=== PATIENT | male | born 1950 | race Caucasian/White ===

== ENCOUNTER 2022-07-14 16:40 | Outpatient (CLI) | payer BC, SELFPAY | END 2022-07-14 16:41 | disposition home or self-care (01) | LOC: AMB 08-13 11:37 | PROVIDERS: PCP Family Medicine; Visit Provider Family Medicine | DX: R53.1 Weakness (principal); R11.2 Nausea with vomiting, unspecified | CPT/HCPCS: A0425; A0429 ==

== ENCOUNTER 2022-07-14 17:05 | Inpatient (IN) | payer BC, SELFPAY ==
[2022-07-14] VITALS (8 sets, daily range): BP systolic 123–153; BP diastolic 68–93; PULSE 97–103; RESP 18–20; TEMP 37.3; O2SAT 98–99; BMI 37.6
--- NOTE | 2022-07-14 18:02 | CRLHL7_ITS ---
For Patients: As a result of the Century Cures Act, medical imaging exams and procedure reports are released immediately into your electronic medical record. You may view this report before your referring provider. If you have questions, please contact your health care provider. Indication: Abdominal pain, nausea and vomiting Technique: Contrast enhanced CT of the abdomen and pelvis, Isovue 370, 139 cc IV Please note that all CT scans at this facility use dose modulation, iterative reconstruction, and/or weight-based dosing when appropriate to reduce radiation dose to as low as reasonably achievable. Comparison: CT dated September 22, 2020 on Findings: Normal liver size and contour. No suspicious hepatic lesions. Hepatic veins are under opacified. Portal veins patent. Gallbladder not visualized. No biliary dilatation. Adrenal glands, spleen and pancreas unremarkable. Bilateral renal cortical scarring and renal atrophy. Low-attenuation renal lesions which are too small to characterize. Heterogeneous enhancement of the kidneys is similar to prior, possibly nonacute. Stomach and duodenum unremarkable. Celiac artery, SMA, renal arteries and renal veins appear patent. Normal course and caliber of the abdominal aorta and the IVC. Moderate atherosclerotic disease of the abdominal aorta. There are is no retroperitoneal lymphadenopathy. There are several prominent pelvic lymph nodes which appear increased in size when compared to prior, for example a left iliac lymph node (series 2, image 98) measures approximately 1.2 centimeters. A right iliac lymph node (series 2, image 99) measures 1.4 centimeters. Mild bladder wall thickening. Prostate unremarkable. No bowel wall thickening or bowel obstruction. The rectal wall is prominent distally (series 2, image 141) however this is unchanged from prior. The appendix is normal. No significant free fluid. No acute osseous abnormality. There are multiple spinous fusions of vertebral bodies. Impression: 1. Mild bladder wall thickening and heterogeneous renal enhancement as may be seen with cystitis and ascending urinary tract infection. Correlate with urinalysis. 2. Few, nonspecifically enlarged pelvic lymph nodes which have increased in size when compared to prior. Please note that all CT scans at this facility use dose modulation, iterative reconstruction, and/or weight-based dosing when appropriate to reduce radiation dose to as low as reasonably achievable. Dictated by Zain Dior MD @ 07/14/2022 7:35:35 PM (Electronically Signed)
--- NOTE | 2022-07-14 18:28 | ED.NAVMDI ---
HPI - Nausea/Vomiting/Diarrhea General Chief complaint: Nausea/Vomiting Stated complaint: Vomiting Time Seen by Provider: 07/14/22 17:46 History of Present Illness HPI Narrative: Marlon is a 72-year-old male patient presents to the emergency department from [facility] independent [facility] the EMS with complaints of 3 episodes of vomiting today. Patient states that he woke in his usual state of health and had breakfast. After which, the patient reports difficulty ?keeping down food?. He reports having a liquid lunch secondary to multiple episodes of vomiting. He denies new food exposures. He denies travel. He denies other residents with similar symptoms. The patient denies abdominal pain, constipation, or diarrhea. He denies fever, chills, or sweats. He was tested for COVID earlier today, per his report. Otherwise, he has received no evaluation or treatment prior to presentation emergency department. He has known history of hypertension, morbid obesity, atrial fibrillation, diabetes mellitus, chronic kidney disease, and peripheral vascular disease. At time of evaluation, the patient reports he has no symptoms and is uncertain why he is in the emergency department. Patient is advised he does not have Friday, but would recommend evaluation given his episodes of vomiting and reported abdominal pain. The patient is agreeable for evaluation. Associated nausea: Yes Related Data Home Medications Medication Instructions Recorded Confirmed atorvastatin 40 mg tablet mg 07/14/22 chlorthalidone 25 mg tablet mg 07/14/22 insulin detemir U-100 100 unit/mL unit subcut 07/14/22 (3 mL) subcutaneous pen (Levemir FlexTouch U-100 Insulin) levetiracetam 1,000 mg tablet mg PO 07/14/22 metoprolol succinate 25 mg mg PO 07/14/22 tablet,extended release 24 hr omeprazole 20 mg capsule,delayed mg 07/14/22 release rivaroxaban 15 mg tablet (Xarelto) mg 07/14/22 tamsulosin 0.4 mg capsule mg PO 07/14/22 Allergies Allergy/AdvReac Type Severity Reaction Status Date / Time Unable to Assess Allergy Unverified 07/14/22 19:05 Review of Systems Const: Denies: fever, chills, fatigue or malaise ENMT: Denies: throat pain or difficulty swallowing Cardio: Denies: chest pain or shortness of breath with exertion Resp: Denies: shortness of breath or cough GI: Reports: abdominal pain, nausea and vomiting; Denies: heartburn, diarrhea, constipation, bloating, belching, excessive passing of gas, difficulty swallowing, feeling full early, change in bowel habits or blood in stool : Denies: painful urination, urinary frequency, urinary urgency or blood in urine Neuro: Denies: headache Endo: Denies: excessive urination or fatigue PFSH PFSH Social History Smoking Status: Smoker, status unknown Non-prescribed substance use: denies use Exam Const: Vital Signs, click to edit/add: Vital Signs - 24 hr 07/14/22 17:21 Temperature 99.1 F Pulse Rate [Right Pulse Oximeter] 97 Respiratory Rate 18 Blood Pressure [Ri ght Upper Arm] 138/90 H Pulse Oximetry 98 Oxygen Delivery Me thod Room Air Documenting provider has reviewed patient's vital signs: yes Common normals: no apparent distress, oriented x3, no limitations, healthy appearing, alert and well nourished General appearance: cooperative, comfortable and well developed; not in distress Orientation/consciousness: Yes awake, Yes oriented to person, Yes oriented to place and Yes oriented to time HENMT: Common normals: normocephalic and head/scalp atraumatic Head and scalp: normocephalic and atraumatic Face and sinus: normal facial exam (limited by masking) Eye: Common normals: EOMs intact bilaterally General eye: normal appearance of both eyes Resp: Common normals: normal respiratory effort, no retractions, no use of accessory muscles and clear to auscultation bilaterally Effort & inspection: able to speak in complete sentences Auscultation: clear to auscultation bilaterally Cardio: Common normals: regular rate, regular rhythm, S1 normal heart sound, S2 normal heart sound, no gallops, no clicks and no murmurs Rate: regular rate Rhythm: regular rhythm Heart sounds: S1 normal and S2 normal GI: Common normals: Normal to inspection, nondistended, normoactive bowel sounds present and soft to palpation Palpation: soft and tender (Diffusely) Extremity: Common normals: normal to inspection (per nursing, patient does have erythematous R thigh) and full ROM General: edema (Chronic and nonpitting, bilateral) Neuro: [place] Coma Scale: document GCS findings [place] coma scale eye opening: To sound (3) [place] coma scale verbal response: Orientated (5) [place] coma scale motor response: Obey commands (6) [place] coma scale total score: 14 Common normals: oriented x3, CN's II-XII intact bilaterally, moves all extremities, no focal motor deficits and no sensory deficits noted Sensorium/orientation: awake, alert, oriented to person, oriented to place and oriented to time Speech: speech normal Gait (neuro): normal gait Sensory exam: double simultaneous stimulation for sensation normal Motor exam: no movement abnormalities noted Psych: Common normals: mental status grossly normal, thought process normal and speech normal Appearance: grossly normal Attitude: calm Speech: normal speech Thought process: normal thought process Thought content: normal thought content Attention/concentration: attention grossly intact Memory/cognition: memory grossly intact and cognition grossly intact Insight: fair Judgement: fair Skin: Common normals: no rashes or lesions noted General skin exam: no rashes or lesions noted Course Course Hospital Course: Marlon presented for complaints of nausea and vomiting, with resolution of symptoms prior to evaluation. He was offered evaluation and treatment including labs and imaging. Initially he was frustrated with the wait times in the high volume, high acuity emergency department. However, with encouragement, he agrees to evaluation and treatment for his acute concerns noted today. Labs have been ordered. Imaging has been ordered. He is resting comfortably after evaluation. Vital Signs Vital signs: Initial Vital Signs Temperature 99.1 F 07/14/22 17:21 Temperature Source Temporal Artery Scan 07/14/22 17:21 Pulse Rate 97 07/14/22 17:21 Respiratory Rate 18 07/14/22 17:21 Blood Pressure 138/90 H 07/14/22 17:21 Blood Pressure Mean 106 07/14/22 17:21 Blood Pressure Position Sitting 07/14/22 17:21 Pulse Oximetry 98 07/14/22 17:21 Oxygen Delivery Method 07/14/22 17:21 Vital Signs Temperature 99.1 F 07/14/22 17:21 Pulse Rate 97 07/14/22 17:21 Respiratory Rate 18 07/14/22 17:21 Blood Pressure 138/90 H 07/14/22 17:21 Pulse Oximetry 98 07/14/22 17:21 Oxygen Delivery Method 07/14/22 17:21 Temperature 99.1 F 07/14/22 17:21 Pulse Rate 97 07/14/22 17:21 Respiratory Rate 18 07/14/22 17:21 Blood Pressure 138/90 H 07/14/22 17:21 Pulse Oximetry 98 07/14/22 17:21 Oxygen Delivery Method 07/14/22 17:21 MDM - Nausea/Vomiting/Diarrhea MDM Narrative Medical decision making narrative: During the evaluation of this patient consider multiple differential diagnosis considerations. The life-threatening differential diagnoses considered include: Appendicitis, aortic aneurysm, mesenteric ischemia, bowel perforation, volvulus, and bowel obstruction. Other differential diagnoses include but are not limited to: Inflammatory bowel disease, cholecystitis, pancreatitis, hepatitis, gastritis, GERD, diverticulitis, peptic ulcer disease, pyelonephritis/UTI, renal colic/stone, diseases of the genitourinary system and reproductive system, as well as the other etiologies. Medical Records Attestation: I reviewed the patient's medical records. Lab Data Attestation: I reviewed the patient's lab results. Labs: Lab Results 07/14/22 07/14/22 07/14/22 Range/Units 17:35 17:57 18:05 WBC 26.10 H* (4.50-11.00) K/uL RBC 4.65 (4.30-5.90) m/uL Hgb 14.6 (13.5-17.5) gm/dL Hct 43.5 (37.0-53.0) % MCV 94 (80-100) fL MCH 31 (26-34) pg MCHC 34 (32-36) gm/dL RDW Coeff of Alessandro 13.3 (11.5-15.5) % Plt Count 188 (140-440) K/uL Neut % (Auto) 93.2 H (42.0-72.0) % Lymph % (Auto) 1.7 L (20-44) % [place] % (Auto) 4.8 (0.0-11.0) % Eos % (Auto) 0.0 (0.0-7.0) % Baso % (Auto) 0.0 (0.0-3.0) % Neut # (Auto) 24.30 H (1.7-7.0) K/uL Lymph # (Auto) 0.40 L (0.90-2.90) K/uL [place] # (Auto) 1.30 H (0.00-0.90) K/UL Eos # (Auto) 0.00 (0.00-0.50) K/uL Baso # (Auto) 0.00 (0.00-0.30) K/uL Abs Immat Gran (auto) 0.10 (0.00-0.30) K/uL Imm/Tot Granulo (auto) 0.3 % Sodium (135-149) mmol/L Potassium (3.6-5.1) mmol/L Chloride (96-114) mmol/L Carbon Dioxide (20-32) mmol/L BUN (7-30) mg/dL Creatinine (0.5-1.5) mg/dL Estimated Creat Clear Estimated GFR ml/min Glucose (60-115) mg/dL Venous Lactic Acid (Serial Order) Calcium (8.4-10.6) mg/dL Total Bilirubin (0.1-1.5) mg/dL AST (12-35) U/L ALT (4-50) U/L Alkaline Phosphatase (40-150) U/L Total Protein (6.0-8.3) g/dL Albumin (3.3-5.0) g/dL Amylase (18-89) U/L Lipase (23-300) U/L Procalcitonin (<0.50) ng/mL Urine Color Yellow (Yellow) Urine Appearance Cloudy A (Clear) Urine pH 7.0 (5.0-8.5) Ur Specific [place] 1.020 (1.000-1.030) Urine Protein 3+ A (Negative) Urine Glucose (UA) 2+ A (Negative) Urine Ketones Trace A (Negative) Urine Blood 2+ A (Negative) Urine Nitrite Negative (Negative) Urine Bilirubin Negative (Negative) Urine Urobilinogen 0.2 (0.2-1.0) Ur Leukocyte Esterase Trace A (Negative) Urine RBC 2-5 A (0-2) Urine WBC 5-10 A (0-5) Urine WBC Clumps Few A (None) Ur Squamous Epith Cells None (None-Few) Amorphous Sediment Few A (None) Urine Bacteria Few A (None) SARS-CoV-2 (PCR) Negative SARS-CoV-2 (Negative) 07/14/22 07/14/22 07/14/22 Range/Units 18:05 18:05 18:05 WBC (4.50-11.00) K/uL RBC (4.30-5.90) m/uL Hgb (13.5-17.5) gm/dL Hct (37.0-53.0) % MCV (80-100) fL MCH (26-34) pg MCHC (32-36) gm/dL RDW Coeff of Alessandro (11.5-15.5) % Plt Count (140-440) K/uL Neut % (Auto) (42.0-72.0) % Lymph % (Auto) (20-44) % [place] % (Auto) (0.0-11.0) % Eos % (Auto) (0.0-7.0) % Baso % (Auto) (0.0-3.0) % Neut # (Auto) (1.7-7.0) K/uL Lymph # (Auto) (0.90-2.90) K/uL [place] # (Auto) (0.00-0.90) K/UL Eos # (Auto) (0.00-0.50) K/uL Baso # (Auto) (0.00-0.30) K/uL Abs Immat Gran (auto) (0.00-0.30) K/uL Imm/Tot Granulo (auto) % Sodium 130 L (135-149) mmol/L Potassium 4.9 (3.6-5.1) mmol/L Chloride 98 (96-114) mmol/L Carbon Dioxide 22 (20-32) mmol/L BUN 35 H (7-30) mg/dL Creatinine 1.8 H (0.5-1.5) mg/dL Estimated Creat Clear 40.69 Estimated GFR 39 ml/min Glucose (60-115) mg/dL Venous Lactic Acid (Serial Order) Calcium 8.7 (8.4-10.6) mg/dL Total Bilirubin 1.2 (0.1-1.5) mg/dL AST 24 (12-35) U/L ALT 20 (4-50) U/L Alkaline Phosphatase 118 (40-150) U/L Total Protein 6.9 (6.0-8.3) g/dL Albumin 3.5 (3.3-5.0) g/dL Amylase 52 (18-89) U/L Lipase 13 L (23-300) U/L Procalcitonin 1.55 H (<0.50) ng/mL Urine Color (Yellow) Urine Appearance (Clear) Urine pH (5.0-8.5) Ur Specific [place] (1.000-1.030) Urine Protein (Negative) Urine Glucose (UA) (Negative) Urine Ketones (Negative) Urine Blood (Negative) Urine Nitrite (Negative) Urine Bilirubin (Negative) Urine Urobilinogen (0.2-1.0) Ur Leukocyte Esterase (Negative) Urine RBC (0-2) Urine WBC (0-5) Urine WBC Clumps (None) Ur Squamous Epith Cells (None-Few) Amorphous Sediment (None) Urine Bacteria (None) SARS-CoV-2 (PCR) (Negative) Imaging Data CT scan - abdomen: Attestation: I have reviewed the pertinent imaging results. Radiologist's impression: Impression: 1. Mild bladder wall thickening and heterogeneous renal enhancement as may be seen with cystitis and ascending urinary tract infection. Correlate with urinalysis. 2. Few, nonspecifically enlarged pelvic lymph nodes which have increased in size when compared to prior. Discharge Plan Discharge Clinical Impression: Acute UTI, Metabolic acidosis Diabetes mellitus with hyperglycemia, with long-term current use of insulin Qualifiers: Diabetes mellitus type: type 2 Qualified Code(s): E11.65 - Type 2 diabetes mellitus with hyperglycemia Patient Disposition: Admitted As Inpatient Condition: Stable Activity Level: Activity as Tolerated Discharge Diet: Diabetic and Heart Healthy (2 gm sodium, low fat)
[2022-07-14 18:38] LABS: Hematocrit 43.5 % (37.0-53.0); Hemoglobin* 14.6 gm/dL (13.5-17.5); Immature Granulocytes Pct Auto 0.3 %; Lymphocytes Percent Auto 1.7 % (20-44); Mean Corpuscular HGB Conc 34 gm/dL (32-36); Mean Corpuscular Hemoglobin 31 pg (26-34); Mean Corpuscular Volume 94 fL (80-100); Monocytes Percent Auto 4.8 % (0.0-11.0); Neutrophils Percent Auto 93.2 % (42.0-72.0); Platelet Count* 188 K/uL (140-440); RDW Coefficient of Variation % 13.3 % (11.5-15.5); Red Blood Count 4.65 m/uL (4.30-5.90)
[2022-07-14 18:39] LABS: Albumin* 3.5 g/dL (3.3-5.0); Chloride* 98 mmol/L (96-114); Potassium* 4.9 mmol/L (3.6-5.1); Slide Review Reflex No; Sodium* 130 mmol/L (135-149)
[2022-07-14 18:41] LABS: Amylase* 52 U/L (18-89)
[2022-07-14 18:42] LABS: Alanine Aminotransferase* 20 U/L (4-50); Alkaline Phosphatase* 118 U/L (40-150); Aspartate Amino Transferase* 24 U/L (12-35); Bilirubin Total* 1.2 mg/dL (0.1-1.5); Blood Urea Nitrogen* 35 mg/dL (7-30); Calcium* 8.7 mg/dL (8.4-10.6); Carbon Dioxide* 22 mmol/L (20-32); Creatinine* 1.8 mg/dL (0.5-1.5); Est. Creatinine Clearance* 40.69; Estimated Glomerular Filt Rate 39 ml/min; Lipase* 13 U/L (23-300); Total Protein* 6.9 g/dL (6.0-8.3)
--- NOTE | 2022-07-14 18:47 | CRLHL7_ITS ---
For Patients: As a result of the Century Cures Act, medical imaging exams and procedure reports are released immediately into your electronic medical record. You may view this report before your referring provider. If you have questions, please contact your health care provider. INDICATION: Leukocytosis. COMPARISON: Chest radiograph dated November 01, 2021. TECHNIQUE: Single-view chest radiograph. FINDINGS: Stable cardiomediastinal contours. No focal pulmonary opacity. High-density material projects over the right axilla. No significant pleural effusion or pneumothorax. IMPRESSION: No acute cardiopulmonary abnormality. Dictated by Zain Dior MD @ 07/14/2022 7:36:54 PM (Electronically Signed)
[2022-07-14 18:50] LABS: SARS PCR* Negative SARS-CoV-2 (Negative)
--- NOTE | 2022-07-14 19:02 | ED.NURSE ---
Critical labs received: Glucose 402, WBC 26.1, handed to at 1855, new orders received
[2022-07-14 19:04] LABS: Lactate Sepsis w/Reflex* 2.9 mmol/L (0.5-1.9)
[2022-07-14 19:22] LABS: Appearance Urine Cloudy (Clear); Bilirubin Urine Negative (Negative); Blood Urine 2+ (Negative); Color Urine Yellow (Yellow); Glucose Urine 2+ (Negative); Ketones Urine Trace (Negative); Leukocyte Esterase Urine Trace (Negative); Nitrite Urine Negative (Negative); Protein Urine 3+ (Negative); Urobilinogen Urine 0.2 (0.2-1.0)
[2022-07-14 19:31] LABS: Procalcitonin* 1.55 ng/mL (<0.50)
[2022-07-14 19:32] LABS: Amorphous Sediment Urine Few; Bacteria Urine Few; WBC Clumps Urine Few
[2022-07-14] MEDS: 0.9 % SODIUM CHLORIDE 1000 ml 1,000 ML IV (19:46)
[2022-07-14] MEDS: FUROSEMIDE 10 MG/ML inj 20 MG IVP (20:06)
[2022-07-14] MEDS: cefTRIAXone 2 GM in 0.9 % SODIUM CHLORIDE Mini-bag 100 ML IVPB (20:23)
--- NOTE | 2022-07-14 20:34 | ED.NURSE ---
Gave update to [facility]TC EBONI Plata about plan to admit.
--- NOTE | 2022-07-14 21:06 | ED.NURSE ---
Pt to floor with Normal Saline infusing.
--- NOTE | 2022-07-14 21:10 | PM.IMHP1 ---
Hospitalist- H&P: HPI History of Present Illness Date Seen: 07/14/22 Chief complaint: Vomiting Narrative: Marlon Quijano is a 72 year old male who lives in the [address] [facility] [address]. He awoke feeling fine today and ate a normal breakfast. Pt then began having an upset stomach with no abd pain. Pt's nausea persisted and he vomited times 3. No blood in his vomitus. No diarrhea. Do to feeling poorly, pt called EMS and was brought to the Emergency Department where his evaluation showed a white blood cell count of 26.1. He is an insulin dependant diabetic and his blood sugar was roughly 400 with an anion gap of 10. Pts creatinine was 1.8 with a BUN of 35, Sodium was 130 and Procalcitonin was 1.55. Chest x ray was normal and CT of abd and pelvis showed bladder wall thickening with pelvic lymph nodes. UA compatible with infection. Blood and urine cultures were collected and pt received IV Rocephin. Pt agrees to admission. Covid testing is negative. Review of Systems Status of ROS: Reports: 10 or more systems reviewed and unremarkable except as noted in History and below [facility] Medical History (Updated 07/14/22 @ 21:41 by Mauro Melendrez MD) Atrial fibrillation BPH (benign prostatic hyperplasia) Chronic renal insufficiency Diabetes mellitus Hearing loss Hyperlipidemia Hypertension MRSA (methicillin resistant staph aureus) culture positive Neuropathy Obesity Peripheral vascular disease Pressure ulcer Tinea Vomiting Social History Smoking Status: Smoker, status unknown Non-prescribed substance use: denies use Meds Home Medications and Allergies Home Medications Medication Instructions Recorded Confirmed Type atorvastatin 40 mg tablet 40 mg PO .bedtime 07/14/22 07/14/22 History chlorthalidone 25 mg tablet mg 07/14/22 History insulin detemir U-100 100 unit/mL unit subcut 07/14/22 History (3 mL) subcutaneous pen (Levemir FlexTouch U-100 Insulin) levetiracetam 1,000 mg tablet mg PO 07/14/22 History metoprolol succinate 25 mg mg PO 07/14/22 History tablet,extended release 24 hr omeprazole 20 mg capsule,delayed mg 07/14/22 History release rivaroxaban 15 mg tablet (Xarelto) mg 07/14/22 History tamsulosin 0.4 mg capsule 0.4 mg PO NIGHTLY 07/14/22 07/14/22 History Allergies Allergy/AdvReac Type Severity Reaction Status Date / Time Influenza Virus Vaccines Allergy Unknown Unknown Verified 07/14/22 20:37 Exam Narrative: Exam Narrative: EXAM GENERAL: Patient appears poorly kept with multiple [place] of tinea in his folds EYES: No scleral icterus. THYROID: no thyroid nodules or thyromegaly. LYMPH: No supraclavicular or cervical lymphadenopathy. SKIN: As above with peripheral vascular bronzing with chronic appearing ulcerations of the lower extremity which do not appear to be infected. Small pressure ulcers times three on the buttocks in the midline. No signs of infection EXT: Lateral 2 digits amputated in the left lower extremity with multiple partial digit amputations of the upper extremities. HEART: Irregularly irregular with distant heart tones LUNGS: Clear to auscultation bilaterally with no crackles or wheezes. ABD: Soft, non tender, non distended. PSYCH: Good eye contact, speech is not pressured. neurologic: Peripheral neuropathy noted no signs of acute infection. No other focal neurologic defects. Const: Vital Signs, click to edit/add: Vital Signs - 24 hr 07/14/22 17:21 07/14/22 18:02 07/14/22 20:45 Temperature 99.1 F Pulse Rate [Right Pulse Oximeter] 97 103 H Respiratory Rate 18 20 20 Blood Pressure [Ri ght Upper Arm] 138/90 H 150/93 H 123/68 Pulse Oximetry [facility] 07/14/22 20:00 Temperature Pulse Rate [Right Pulse Oximeter] Respiratory Rate Blood Pressure [Ri ght Upper Arm] 130/93 H Pulse Oximetry [facility] - [facility]: Result Labs Labs: Short CBC 07/14/22 Range/Units 18:05 WBC 26.10 H* (4.50-11.00) K/uL Hgb 14.6 (13.5-17.5) gm/dL Hct 43.5 (37.0-53.0) % Plt Count 188 (140-440) K/uL BMP 07/14/22 18:05 Sodium 130 L Potassium 4.9 Chloride 98 Carbon Dioxide 22 BUN 35 H Creatinine 1.8 H Glucose Calcium 8.7 Liver Function 09/18/22 Range/Units 18:05 Total Bilirubin 1.2 (0.1-1.5) mg/dL AST 24 (12-35) U/L ALT 20 (4-50) U/L Alkaline Phosphatase 118 (40-150) U/L Albumin 3.5 (3.3-5.0) g/dL Urine 07/14/22 Range/Units 17:35 Urine Color Yellow (Yellow) Urine Appearance Cloudy A (Clear) Urine pH 7.0 (5.0-8.5) Ur Specific [place] 1.020 (1.000-1.030) Urine Protein 3+ A (Negative) Urine Glucose (UA) 2+ A (Negative) Assessment and Plan Assessment and plan (1) Acute UTI: Status: Acute Assessment and Plan: Blood cultures collected. Urine culture collected. Rocephin IV will be continued. Will repeat AM labs as well as a lactate now. (2) Diabetes mellitus: Status: Chronic Assessment and Plan: Will continue current outpt regiment as well as accuchecks and sliding scale insulin. (3) Pressure ulcer: Status: Acute Assessment and Plan: Off load tissue. Mepelex. Tdap confirmed on 12-18-18. Consider wound consult. (4) Chronic renal insufficiency: Status: Acute Assessment and Plan: Pt is near baseline. Will hydrate overnight with repeat labs in the am. (5) Vomiting: Status: Acute Assessment and Plan: This seems to have resolved. Will hydrate and provide Zofran. (6) Tinea: Status: Acute Assessment and Plan: Hygiene issue. Will clean up and provide nystatin creme. (7) Peripheral vascular disease: Status: Chronic Assessment and Plan: Chronic No signs of secondary infection (8) Atrial fibrillation: Status: Chronic Assessment and Plan: Rate is controlled will continue Riveroxoban. (9) Hypertension: Status: Chronic Assessment and Plan: Blood pressure stable. Will continue outpt regiment. (10) Hyperlipidemia: Status: Chronic Assessment and Plan: Continue Atorvastatin (11) BPH (benign prostatic hyperplasia): Status: Chronic Assessment and Plan: Continue Flomax. May benefit from bladder scan post void in the am. Plan Pt wishes to be a DNR
[2022-07-14 21:28] LABS: Glucose* 402 mg/dL (60-115)
[2022-07-14 22:14] LABS: Lactate Sepsis 2 Hour 2.3 mmol/L (0.5-1.9)
[2022-07-14] MEDS: ATORVASTATIN CALCIUM 40 MG TABLET PO (22:51)
[2022-07-14] MEDS: cefTRIAXone 1 GM in 0.9 % SODIUM CHLORIDE Mini-bag 100 ML IVPB (22:51)
[2022-07-15] MEDS: 0.9 % SODIUM CHLORIDE 1000 ml 1,000 ML 75 ML IV (00:51)
[2022-07-15 03:00] VITALS: BP 117/69; PULSE 66; RESP 21; O2SAT 100
[2022-07-15 03:15] VITALS: BP 153/80; PULSE 98; RESP 18; TEMP 37.3; O2SAT 99; BMI 40.9
--- NOTE | 2022-07-15 06:56 | PC.NURSE ---
shift [id number] pt admitted from ED at 2044. c/o nausea and vomiting at home but has since denies any symptoms. States he feels weak d/t not eating much the last few days. Unable to transfer or bear weight per pt report, uses WC at home to get around. Incontinent x1 NOC, brief changed, carina care done. Skin in groin red and inflamed. Nystatin cream ordered form this morning. Pt has multiple open and scabbed sores on buttocks, inner and outer thighs/calf, and feet. See wound report. Denies any pain. Pt is adamant that he will be leaving at 1030 d/t company coming to visit. refused lab draw in AM.
[2022-07-15 08:00] VITALS: PULSE 92; RESP 18
[2022-07-15 08:17] VITALS: BP 157/73; PULSE 92; RESP 18; TEMP 36.7; O2SAT 98
--- NOTE | 2022-07-15 09:29 | P.DS_ITS ---
DS: Providers Provider Date Seen: 07/15/22 Date of admission: 07/14/22 20:39 Primary care physician: Willis Puentes MD Admitting Clinician: Mauro Melendrez MD Attending Physician on discharge: Abe Chan MD Date of Discharge: 07/15/22 DS: Diagnosis Discharge Diagnosis (1) Acute UTI: Status: Acute Problem details: 1. Acute UTI 2. Hx of CKD 3. 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 Hx of PVD 5. Hx of BPH 6. Nausea, vomiting 7. Hx of HLD 8. Hx of pressure ulcers 9. Palliative comfort care DS: Summary Hospital Course Hospital Course: Marlon presented for evaluation of fever and UTI. He was started on Ceftriaxone. On day two of hospitalization he requested discharge. Initial plan was to discharge AMA. However, his halfway care facility was notified and it was found that patient is on comfort care. Per facility weekend nurses where not aware that patient was comfort care otherwise he would not have been sent to hospital. He has poorly controlled Diabetes with hyperglycemia. Upon further discussion with patient he requested expedited discharge back to his halfway care facility. He requested to be discharged on oral antibiotics and continuation of seating captain medications. Time Spent with Patient Time attestation: Total time spent providing and/or coordinating discharge services: Time spent: Greater than 30 minutes Exam Narrative: Exam Narrative: Gen: no acute distress HEENT: NCAT EOMI MMM CV: RRR normal s1 s2 lungs: CTAB Abd: Soft, nt nd Neuro: Alert, oriented Psyche: appropriate affect Const: Vital Signs, click to edit/add: Vital Signs - 24 hr 07/14/22 17:21 07/14/22 18:02 07/14/22 20:45 Temperature 99.1 F Pulse Rate [Left P ulse Oximeter] Pulse Rate [Right Pulse Oximeter] 97 103 H Respiratory Rate 18 20 20 Blood Pressure [Le ft Arm] Blood Pressure [Ri ght Arm] Blood Pressure [Ri ght Upper Arm] 138/90 H 150/93 H 123/68 Pulse Oximetry 98 Oxygen Delivery Me thod Room Air 07/14/22 20:00 07/14/22 21:42 07/14/22 23:00 Temperature 99.1 F Pulse Rate [Left P ulse Oximeter] Pulse Rate [Right Pulse Oximeter] Respiratory Rate 18 18 Blood Pressure [Le ft Arm] 153/80 H 153/80 H Blood Pressure [Ri ght Arm] Blood Pressure [Ri ght Upper Arm] 130/93 H Pulse Oximetry 99 99 Oxygen Delivery Me thod Room Air Room Air 07/14/22 22:00 07/15/22 03:15 07/15/22 03:00 Temperature 99.1 F Pulse Rate [Left P ulse Oximeter] 98 66 Pulse Rate [Right Pulse Oximeter] Respiratory Rate 18 18 21 Blood Pressure [Le ft Arm] 153/80 H Blood Pressure [Ri ght Arm] 117/69 Blood Pressure [Ri ght Upper Arm] Pulse Oximetry 98 99 100 Oxygen Delivery Me thod Room Air Room Air Room Air 07/14/22 21:00 07/15/22 08:17 Temperature 98.0 F Pulse Rate [Left P ulse Oximeter] 98 92 Pulse Rate [Right Pulse Oximeter] Respiratory Rate 18 18 Blood Pressure [Le ft Arm] Blood Pressure [Ri ght Arm] 157/73 H Blood Pressure [Ri ght Upper Arm] Pulse Oximetry 98 Oxygen Delivery Me thod Room Air DS: Data Data Completed and Pending Labs on day of discharge: Labs from last 24 hours 07/14/22 07/14/22 07/14/22 18:05 18:05 18:05 WBC RBC Hgb Hct MCV MCH MCHC RDW Coeff of Alessandro Plt Count Neut % (Auto) Lymph % (Auto) [place] % (Auto) Eos % (Auto) Baso % (Auto) Neut # (Auto) Lymph # (Auto) [place] # (Auto) Eos # (Auto) Baso # (Auto) Abs Immat Gran (auto) Imm/Tot Granulo (auto) Sodium 130 L Potassium 4.9 Chloride 98 Carbon Dioxide 22 BUN 35 H Creatinine 1.8 H Estimated Creat Clear 40.69 Estimated GFR 39 Glucose 402 H* Venous Lactic Acid (Serial Order) Calcium 8.7 Total Bilirubin 1.2 AST 24 ALT 20 Alkaline Phosphatase 118 Total Protein 6.9 Albumin 3.5 Amylase 52 Lipase 13 L Procalcitonin 1.55 H Urine Color Urine Appearance Urine pH Ur Specific [place] Urine Protein Urine Glucose (UA) Urine Ketones Urine Blood Urine Nitrite Urine Bilirubin Urine Urobilinogen Ur Leukocyte Esterase Urine RBC Urine WBC Urine WBC Clumps Ur Squamous Epith Cells Amorphous Sediment Urine Bacteria SARS-CoV-2 (PCR) 07/14/22 07/14/22 07/14/22 18:05 17:57 17:35 WBC 26.10 H* RBC 4.65 Hgb 14.6 Hct 43.5 MCV 94 MCH 31 MCHC 34 RDW Coeff of Alessandro 13.3 Plt Count 188 Neut % (Auto) 93.2 H Lymph % (Auto) 1.7 L [place] % (Auto) 4.8 Eos % (Auto) 0.0 Baso % (Auto) 0.0 Neut # (Auto) 24.30 H Lymph # (Auto) 0.40 L [place] # (Auto) 1.30 H Eos # (Auto) 0.00 Baso # (Auto) 0.00 Abs Immat Gran (auto) 0.10 Imm/Tot Granulo (auto) 0.3 Sodium Potassium Chloride Carbon Dioxide BUN Creatinine Estimated Creat Clear Estimated GFR Glucose Venous Lactic Acid (Serial Order) Calcium Total Bilirubin AST ALT Alkaline Phosphatase Total Protein Albumin Amylase Lipase Procalcitonin Urine Color Yellow Urine Appearance Cloudy A Urine pH 7.0 Ur Specific [place] 1.020 Urine Protein 3+ A Urine Glucose (UA) 2+ A Urine Ketones Trace A Urine Blood 2+ A Urine Nitrite Negative Urine Bilirubin Negative Urine Urobilinogen 0.2 Ur Leukocyte Esterase Trace A Urine RBC 2-5 A Urine WBC 5-10 A Urine WBC Clumps Few A Ur Squamous Epith Cells None Amorphous Sediment Few A Urine Bacteria Few A SARS-CoV-2 (PCR) Negative SARS-CoV-2 Discharge Plan Discharge Disposition: Left Against Medical Advice Date of Admission: 07/15/22 09:38 Attending Physician on Admission: Mauro Melendrez Attending Provider on Discharge: Abe Chan Primary Care Provider: Willis Puentes Condition: Stable Discharge Medications: New cefdinir 300 mg capsule 300 mg PO BID Qty: 14 0RF Continued atorvastatin 40 mg tablet 40 mg PO HS tamsulosin 0.4 mg capsule 0.4 mg PO NIGHTLY omeprazole 20 mg capsule,delayed release(DR/EC) 20 mg PO DAILY metoprolol succinate 25 mg tablet extended release 24 hr 25 mg PO DAILY Levemir FlexTouch U-100 Insuln 100 unit/mL (3 mL) insulin pen 50 unit SUBCUT HS levetiracetam 1,000 mg tablet 1,000 mg PO QAM Xarelto 15 mg tablet 15 mg PO HS furosemide 20 mg tablet 10 mg PO DAILY levetiracetam 500 mg tablet 500 mg PO HS emollient [Vanicream] Cream 1 applic topical HS Rx Instructions: APPLY TO ARMS AND LEGS acetaminophen 500 mg tablet 1,000 mg PO BID loperamide 2 mg capsule 2 mg PO QID PRN nitroglycerin 0.4 mg tablet, sublingual 0.4 mg sublingual Q5M PRN (Reason: chest pain) sennosides [Natural Senna Laxative] 8.6 mg tablet 8.6 mg PO BID PRN ondansetron HCl 8 mg tablet 8 mg PO Q8H PRN Discharge Orders: Discharge Order (Routine); Ordered 07/15/22 Ordered By: Abe Chan Activity Level: Activity as Tolerated Discharge Diet: Diabetic and Heart Healthy (2 gm sodium, low fat) Follow Up Appointments: Willis Puentes MD [Primary Care Provider] - Hospital Course: Marlon presented for evaluation of fever and UTI. He was started on Ceftriaxone. On day two of hospitalization he requested discharge. Initial plan was to discharge AMA. However, his halfway care facility was notified and it was found that patient is on comfort care. Per facility weekend nurses where not aware that patient was comfort care otherwise he would not have been sent to hospital. He has poorly controlled Diabetes with hyperglycemia. Upon further discussion with patient he requested expedited discharge back to his halfway care facility. He requested to be discharged on oral antibiotics and continuation of seating captain medications. AMA Form Signed: Yes
--- NOTE | 2022-07-15 09:36 | PC.SOCIAL ---
Pt. will discharge back to [address] [place] [address] at 1pm today via [facility] transport, approved by pt.'s [facility] insurance.
[2022-07-15] MEDS: METOPROLOL SUCCINATE (XL) 25 MG TAB PO (09:48)
--- NOTE | 2022-07-15 13:05 | PC.NURSE ---
Discharge-- Alert and oriented patient was discharged back to [facility] via [facility] per his demand but against medical advice. Yoshi stating that pt is primarily comfort cares only. PHILLIP Forbes was updated via telephone and all questions were answered. VSS, though mildly hypertensive, and pt is afebrile. SPO2 >90% on RA. He denied any pain. LS CTA. Pt has a frequent, dry cough as though clearing throat. HR irregular as per pt's baseline a fib. He denied any nausea and ate roughly half of a regular diabetic diet with minimal assistance and no difficulty. Blood glucose 475 this morning and pt was given 12 units NovoLog per sliding scale. MD was notified, but declined further intervention related to being unable to monitor patient as he is leaving. Several wounds were noted on coccyx and backs of thighs that were covered with Mepilex that is C/D/I. Scabbed and healing wounds noted on shins and feet. Right pinky toe is black in color. Nurse at care center is aware. Pt was incontinent of urine once this shift. He refused cares. Nurse to nurse report was given to Dominique at [facility] and all questions were answered. Pt refused education. Hard script for antibiotic sent with patient and message left for nurse. SL was removed with tip intact.
--- NOTE | 2022-07-17 07:25 | PC.NURSE ---
Was notified by lab that patient had a positive blood culture. Update Dr. Carver was update with this information and also call [facility] spoke with Nurse Debora. Update her and she will notify patient of this result to see what patient would like to do. Patient left AMA on Friday and is on comfort cares at [facility].
== END 2022-07-15 12:30 | disposition left against medical advice (07) | DRG 463 ==
LOC: ED 20:02 → MEDSURG 20:40
PROVIDERS: Admitting Provider Internal Medicine; Emergency Provider Family Medicine; PCP Family Medicine; Visit Provider Internal Medicine
DX: N39.0 Urinary tract infection, site not specified (principal); E11.65 Type 2 diabetes mellitus with hyperglycemia; I48.91 Unspecified atrial fibrillation; N40.0 Benign prostatic hyperplasia without lower urinary tract symptoms; E66.01 Morbid (severe) obesity due to excess calories; E11.51 Type 2 diabetes mellitus with diabetic peripheral angiopathy without gangrene; Z79.4 Long term (current) use of insulin; L89.309 Pressure ulcer of unspecified buttock, unspecified stage; R11.2 Nausea with vomiting, unspecified; I12.9 Hypertensive chronic kidney disease with stage 1 through stage 4 chronic kidney disease, or unspecified chronic kidney disease; N18.9 Chronic kidney disease, unspecified; Z68.41 Body mass index [BMI] 40.0-44.9, adult
CPT/HCPCS: 36415; 71045; 74177; 80048; 80053; 81003; 81015; 82150; 82947; 82962; 83605; 83690; 84145; 85025; 87040; 87076; 87086; 87186; 87635; 99284; 99285; A9270; G0378; J0696; J1940; J7030; Q9967

== ENCOUNTER 2023-01-08 12:21 | Outpatient (CLI) | payer BC, SELFPAY | END 2023-01-08 12:22 | disposition home or self-care (01) | LOC: WOUND 12:21 | PROVIDERS: PCP Family Medicine; Visit Provider Surgery | DX: E11.621 Type 2 diabetes mellitus with foot ulcer (principal); L97.516 Non-pressure chronic ulcer of other part of right foot with bone involvement without evidence of necrosis; I48.20 Chronic atrial fibrillation, unspecified; I73.9 Peripheral vascular disease, unspecified; I10 Essential (primary) hypertension | CPT/HCPCS: 11044; 99214 ==

== ENCOUNTER 2023-01-15 09:02 | Outpatient (CLI) | payer BC, SELFPAY ==
--- NOTE | 2023-01-15 09:15 | CRLHL7_ITS ---
For Patients: As a result of the Cures Act, medical imaging exams and procedure reports are released immediately into your electronic medical record. You may view this report before your referring provider. If you have questions, please contact your health care provider. HISTORY: Second right toe necrosis. TECHNIQUE: MRI right foot without contrast. COMPARISON: 10/16/2019 CT FINDINGS: There is increased T2 signal with corresponding T1 hypointense signal in the middle and distal phalanx of the 2nd toe. There is increased T2 signal in the base of the proximal phalanx of the 2nd toe and 2nd metatarsal head with corresponding T1 hypointense signal. Associated 2nd MTP joint effusion is noted. - Diffuse soft tissue swelling and edema. No discrete drainable fluid collection. Diffuse muscle atrophy and edema could be due to chronic denervation changes. Moderate 1st MTP degenerative changes. Third through 5th MTP articulations are maintained. LisFranc ligament is intact. Flexor and extensor tendons are intact. - IMPRESSION: 1. T2 hyperintense T1 hypointense signal of the middle and distal phalanges of the 2nd toe consistent with osteomyelitis. 2. Similar signal changes about the 2nd MTP joint with associated joint effusion which could be due to osteomyelitis/septic joint. 3. Diffuse soft tissue edema. No discrete drainable fluid collection. Dictated by Wesley Lopez MD @ 01/16/2023 1:53:12 PM (Electronically Signed)
== END 2023-01-15 09:03 | disposition home or self-care (01) ==
PROVIDERS: PCP Family Medicine; Visit Provider Surgery
DX: L97.509 Non-pressure chronic ulcer of other part of unspecified foot with unspecified severity (principal); M86.8X8 Other osteomyelitis, other site; M25.474 Effusion, right foot; E11.621 Type 2 diabetes mellitus with foot ulcer
CPT/HCPCS: 73718; 99214

== ENCOUNTER 2023-01-22 08:26 | Outpatient (CLI) | payer BC, SELFPAY | END 2023-01-22 08:27 | disposition home or self-care (01) | LOC: WOUND 08:26 | PROVIDERS: PCP Family Medicine; Visit Provider Surgery | DX: E11.621 Type 2 diabetes mellitus with foot ulcer (principal); L97.512 Non-pressure chronic ulcer of other part of right foot with fat layer exposed; I87.312 Chronic venous hypertension (idiopathic) with ulcer of left lower extremity; L97.822 Non-pressure chronic ulcer of other part of left lower leg with fat layer exposed | CPT/HCPCS: 11042; 97597 ==

== ENCOUNTER 2023-01-24 12:19 | Outpatient (CLI) | payer BC, SELFPAY | END 2023-01-24 12:20 | disposition home or self-care (01) | LOC: AMB 01-27 09:27 | PROVIDERS: PCP Family Medicine; Visit Provider Family Medicine | DX: R53.81 Other malaise (principal) | CPT/HCPCS: A0425; A0427 ==

== ENCOUNTER 2023-01-24 12:54 | Inpatient (IN) | payer BC, SELFPAY ==
[2023-01-24] VITALS (16 sets, daily range): BP systolic 113–150; BP diastolic 71–103; PULSE 99–127; RESP 20–26; TEMP 36.9–37.4; O2SAT 90–98; BMI 37.6
--- NOTE | 2023-01-24 | CRLHL7_ITS ---
For Patients: As a result of the Century Cures Act, medical imaging exams and procedure reports are released immediately into your electronic medical record. You may view this report before your referring provider. If you have questions, please contact your health care provider. INDICATION: Venous catheter placement. TECHNIQUE: Chest one views. COMPARISON: Same day. FINDINGS: Underpenetration. Right-sided central venous catheter with tip overlying the expected location of the mid SVC. Lungs: Normal lung volume. No consolidation. Basilar heterogeneous airspace opacities likely subsegmental atelectasis. Pleura: No pleural effusion or pneumothorax. Heart and Mediastinum: Borderline cardiomegaly. The great vessels of the thorax are unremarkable. Bones: No acute displaced osseous process. IMPRESSION: Right-sided central venous catheter with tip overlying the expected location of the mid SVC. Dictated by Wesley Mosquera MD @ 01/24/2023 5:42:30 PM (Electronically Signed)
--- NOTE | 2023-01-24 13:12 | ED_ITS ---
HPI - Skin/Abscess/Foreign Bdy General Time Seen by Provider: 13:12 Date Seen: 01/24/23 Chief complaint: Skin/Abscess/Foreign Body Stated complaint: Wound Infection Time Seen by Provider: 01/24/23 13:11 Source: patient, RN notes reviewed and old records reviewed Mode of arrival: EMS Limitations: no limitations History of Present Illness HPI narrative: Marlon is a 72-year-old resident of [address] [place] [address] who is brought to the [facility] by [facility] for evaluation regarding coughing, shortness of breath and lethargy per nursing reports. Marlon tells me that he has had ongoing coughing for 2 days and has been unable to sleep at night. He denies a fever but does note a mild sore throat. He has not had any chest pain with this. He notes that he has had 3 months of right lower extremity swelling but I do note that he is on Xarelto chronically. Nursing was concerned that his 2nd toe on his right foot may be worsening in appearance. He is scheduled for amputation of this toe on January 31 but they did not feel that he could wait to be seen until that time. Marlon denies a runny nose, chest pain, abdominal pain. He does describe difficulty with eating and states that he has been vomiting in association with a cough. Occasionally he has had some loose stools. He has an indwelling catheter. Related Data Home Medications Medication Instructions Recorded Confirmed atorvastatin 40 mg tablet 40 mg PO HS 07/14/22 01/24/23 insulin detemir U-100 100 unit/mL 10 unit subcut HS 07/14/22 01/24/23 (3 mL) subcutaneous pen (Levemir FlexTouch U-100 Insulin) levetiracetam 1,000 mg tablet 1,000 mg PO QAM 07/14/22 01/24/23 metoprolol succinate 25 mg 25 mg PO DAILY 07/14/22 01/24/23 tablet,extended release 24 hr omeprazole 20 mg capsule,delayed 20 mg PO DAILY 07/14/22 01/24/23 release rivaroxaban 15 mg tablet (Xarelto) 15 mg PO HS 07/14/22 01/24/23 tamsulosin 0.4 mg capsule 0.4 mg PO HS 07/14/22 01/24/23 acetaminophen 500 mg tablet 1,000 mg PO BID 07/15/22 01/24/23 emollient (Vanicream topical) 1 applic topical HS 07/15/22 01/24/23 furosemide 20 mg tablet 20 mg PO DAILY 07/15/22 01/24/23 levetiracetam 500 mg tablet 500 mg PO HS 07/15/22 01/24/23 loperamide 2 mg capsule 2 mg PO QID PRN 07/15/22 01/24/23 nitroglycerin 0.4 mg sublingual 0.4 mg sublingual Q5M PRN chest 07/15/22 07/15/22 tablet pain sennosides 8.6 mg tablet (Natural 8.6 mg PO BID PRN 07/15/22 01/24/23 Senna Laxative) Lactobacillus acidophilus 0.5 mg 1 mg PO BID 01/24/23 01/24/23 (100 million cell) tablet carboxymethylcellulose sodium 1 % 1 drp ophthalmic (eye) TID 01/24/23 01/24/23 eye liquid gel drops (Refresh Liquigel) doxycycline hyclate 100 mg capsule 100 mg PO BID 01/24/23 01/24/23 insulin detemir U-100 100 unit/mL 40 unit subcut QAM 01/24/23 01/24/23 (3 mL) subcutaneous pen (Levemir FlexPen) sertraline 100 mg tablet 100 mg PO DAILY 01/24/23 01/24/23 Allergies Allergy/AdvReac Type Severity Reaction Status Date / Time Influenza Virus Vaccines Allergy Unknown Unknown Verified 01/24/23 13:03 Review of Systems Status of ROS: Reports: 10 or more systems reviewed and unremarkable except as noted in History and below Const: Reports: malaise (Per nursing report) and change in sleep pattern (Difficulty with sleeping secondary to cough); Denies: fever or chills ENMT: Reports: throat pain (Mild); Denies: neck pain, throat swelling, difficulty swallowing or hoarseness Cardio: Reports: swelling of feet/ankles (Right lower extremity) and shortness of breath with exertion; Denies: chest pain Resp: Reports: shortness of breath and cough; Denies: wheezing GI: Reports: vomiting and diarrhea (Occasionally); Denies: abdominal pain or difficulty swallowing : Reports: other (Indwelling catheter) Musculo: Denies: neck pain Allergy/Immuno: Denies: throat swelling or wheezing PFSH PFSH Medical History (Updated 01/25/23 @ 16:09 by Lorne Tomlinson MD) Amputation of finger tip ?S68.119A - Complete traumatic metacarpophalangeal amputation of unspecified finger, initial encounter (ICD-10) Amputation of one or more toes ?S98.139A - Complete traumatic amputation of one unspecified lesser toe, initial encounter (ICD-10) Atrial fibrillation ?I48.91 - Unspecified atrial fibrillation (ICD-10) BPH (benign prostatic hyperplasia) ?N40.0 - Benign prostatic hyperplasia without lower urinary tract symptoms (ICD-10) Chronic renal insufficiency ?N18.9 - Chronic kidney disease, unspecified (ICD-10) Diabetes mellitus ?E11.9 - Type 2 diabetes mellitus without complications (ICD-10) Diabetic ulcer of toe ?E11.621 - Type 2 diabetes mellitus with foot ulcer (ICD-10) ?L97.509 - Non-pressure chronic ulcer of other part of unspecified foot with unspecified severity (ICD-10) Epilepsy ?G40.909 - Epilepsy, unspecified, not intractable, without status epilepticus (ICD-10) Hearing loss ?H91.90 - Unspecified hearing loss, unspecified ear (ICD-10) Hyperlipidemia ?E78.5 - Hyperlipidemia, unspecified (ICD-10) Hypertension ?I10 - Essential (primary) hypertension (ICD-10) MRSA (methicillin resistant staph aureus) culture positive ?Z22.322 - Carrier or suspected carrier of Methicillin resistant Staphylococcus aureus (ICD-10) Neuropathy ?G62.9 - Polyneuropathy, unspecified (ICD-10) Obesity ?E66.9 - Obesity, unspecified (ICD-10) Obstructive sleep apnea ?G47.33 - Obstructive sleep apnea (adult) (pediatric) (ICD-10) Peripheral vascular disease ?I73.9 - Peripheral vascular disease, unspecified (ICD-10) Pressure ulcer ?L89.90 - Pressure ulcer of unspecified site, unspecified stage (ICD-10) Tinea ?B35.9 - Dermatophytosis, unspecified (ICD-10) Vomiting ?R11.10 - Vomiting, unspecified (ICD-10) Surgical History (Updated 01/24/23 @ 18:53 by Lorne Tomlinson MD) History of arthroscopy of knee ?Z98.890 - Other specified postprocedural states (ICD-10) History of arthroscopy of shoulder ?Z98.890 - Other specified postprocedural states (ICD-10) History of carpal tunnel release ?Z98.890 - Other specified postprocedural states (ICD-10) History of inguinal hernia repair ?Z98.890 - Other specified postprocedural states (ICD-10) ?Z87.19 - Personal history of other diseases of the digestive system (ICD-10) Family History (Updated 01/24/23 @ 18:53 by Lorne Tomlinson MD) Father Coronary artery disease Social History (Updated 01/24/23 @ 18:54 by Lorne Tomlinson MD) Narrative: 72-year-old male with remote history of cigarette smoking. Rarely drinks alcohol. Lives at [address] [place] [address]. Code status is DNR Smoking Status: Former smoker Do you use any of these nicotine containing products: None How often do you have a drink containing alcohol: never AUDIT-C Alcohol total score: 0 Non-prescribed substance use: denies use Exam Narrative: Exam Narrative: Alert and oriented.? Extremely talkative.? Somewhat argumentative at times.? Eyes are clear as is oral cavity.? Neck is supple.? Face is symmetrical.? Heart with a tachycardic rate at 100.? However it is regular.? Lungs with decr eased breath sounds in the bases.? No wheezing is auscultated.? Frequent coughing is noted but it does not appear to be significantly productive.? Multiple missing digits on hands. Other partial or whole. Abdomen is obese soft nontender.? Indwelling Gillis catheter.? Lower extremities show skin with significant signs of venous stasis.? On the left foot he has digits 4 and 5 missing.? His 3rd toe shows dried blood and some mild edema.? On the right foot he has ulcer on the plantar surface 2nd toe.? There is packing in there at this time.? It is foulsmelling.? The toe itself on the dorsal surface is edematous.? He has erythema extending on to the dorsum of the foot approximately detention.? It is warm to the touch.? Right leg he is swore swollen than the left.? (patient notes this is been ongoing for approximately 3 months). Const: Vital Signs, click to edit/add: Vital Signs - 24 hr 01/24/23 13:03 01/24/23 14:54 01/24/23 14:55 Temperature 98.7 F Pulse Rate 101 H 106 H Pulse Rate [Pulse Oximeter] 99 Respiratory Rate 26 H Blood Pressure 139/75 Blood Pressure [Le ft Forearm] 137/75 Pulse Oximetry 96 95 97 Oxygen Delivery Me thod Room Air 01/24/23 15:00 01/24/23 15:05 01/24/23 16:26 Temperature Pulse Rate 108 H Pulse Rate [Pulse Oximeter] Respiratory Rate Blood Pressure 117/71 126/73 Blood Pressure [Le ft Forearm] Pulse Oximetry 98 Oxygen Delivery Me thod 01/24/23 16:32 01/24/23 16:38 Temperature 99.3 F Pulse Rate 127 H Pulse Rate [Pulse Oximeter] Respiratory Rate Blood Pressure 113/101 H Blood Pressure [Le ft Forearm] Pulse Oximetry 96 Oxygen Delivery Me thod Documenting provider has reviewed patient's vital signs: yes Course Course Hospital Course: At this time differential diagnosis includes but is not limited to congestive heart failure, acute coronary event, COVID, viral infection, pneumonia, b ronchitis, cellulitis, sepsis. Orders will include CBC, comprehensive panel, CRP, lactate, troponin, EKG, proBNP, athletic monitor and chest x-ray. Wound culture will also be accomplished. Reevaluation(s) Reevaluation #1: Patient noted to have elevation of troponin point of care. I would like of back up in the lab as patient denies any chest pain at this time. EKG is unchanged from 2020. White count has come back slightly elevated with a CRP that is markedly elevated of 18. ProBNP markedly elevated at 12,000 thousand. Suggest we have a osteomyelitis with cellulitic extension onto the foot in conjunction with a non STEMI as well as CHF flare. Patient denies any chest pain prior to today.Chest x-ray by my read shows increased lung markings.? However radiological over-read notes no acute findings.? ProBNP elevated to 12,000.? Reevaluation #2: Patient is currently on Xarelto.? Will give Lasix 40 IV V at this time.? Vancomycin 2 g IV, Zosyn 3.375 g IV.? Unfortunately unable to place IV after multiple attempts by both our nursing staff as well as anesthesia.? Will speak to surgeon healthcare risk control consultant Dr. Pickard and switch Lasix and 4 baby aspirin to oral. Second troponin pending so that we can establish trending pattern.? EKG does show T-wave inversions in both 1 and aVL however compared to EKG in 2019 this is unchanged. Vital Signs Vital signs: Initial Vital Signs Temperature 98.7 F 01/24/23 13:03 Temperature Source Temporal Artery Scan 01/24/23 13:03 Pulse Rate 99 01/24/23 13:03 Pulse Rhythm Regular 01/24/23 13:03 Respiratory Rate 26 H 01/24/23 13:03 Blood Pressure 137/75 01/24/23 13:03 Blood Pressure Mean 95 01/24/23 13:03 Blood Pressure Position Supine 01/24/23 13:03 Pulse Oximetry 96 01/24/23 13:03 Oxygen Delivery Method Room Air 01/24/23 13:03 Vital Signs Temperature 98.7 F 01/24/23 13:03 Pulse Rate 99 01/24/23 13:03 Respiratory Rate 26 H 01/24/23 13:03 Blood Pressure 137/75 01/24/23 13:03 Pulse Oximetry 96 01/24/23 13:03 Oxygen Delivery Method Room Air 01/24/23 13:03 Temperature 98.5 F 01/25/23 20:19 Pulse Rate 88 01/25/23 20:19 Respiratory Rate 22 01/25/23 20:19 Blood Pressure 117/71 01/25/23 15:00 Pulse Oximetry 97 01/25/23 15:00 Oxygen Delivery Method Nasal Cannula 01/25/23 15:00 Oxygen Flow Rate 2 01/25/23 15:00 MDM - Skin/Abscess/Foreign Bdy MDM Narrative Medical decision making narrative: 1. CHF flare-patient has elevated proBNP to 12,000. EKG unchanged from previous and no reports of chest pain. Chest x-ray by my read shows increased lung markings. Patient given Lasix 40 mg IV. 2. Osteomyelitis with cellulitic extension-Zosyn 3.375 g and vancomycin 2 g IV given. Patient had been scheduled for toe amputation on January 31. Patient does have 2 sirs criteria and an infection to be consistent with sepsis. His respirations are at 26 and heart rate was greater than 90. However, he does not have signs of organ dysfunction at this time. Will check a 2nd lactate. No fluids given as this would complicates 1. 3. Elevated troponin-patient noted to have 2nd troponin stable with the 1st. I had the pleasure of speaking to Cardiology at [facility] who feels this is likely secondary to heart failure. Patient does not appear to have a history of heart failure in the past but does have a history of chronic atrial fibrillation. 3. Disposition-admitted under the care of Dr. Tomlinson, hospitalist. Notes significant delay in giving of the antibiotics as well as other medications secondary to no IV. After multiple attempts by senior nursing as well as anesthesia we did contact Dr. Pickard for placement of a central line. Medical Records Attestation: I reviewed the patient's medical records. Lab Data Attestation: I reviewed the patient's lab results. Labs: Lab Results 01/24/23 01/24/23 01/24/23 Range/Units 13:38 14:00 17:06 WBC 11.62 H (4.50-11.00) K/uL RBC 3.82 L (4.30-5.90) m/uL Hgb 11.7 L (13.5-17.5) gm/dL Hct 36.2 L (37.0-53.0) % MCV 95 (80-100) fL MCH 31 (26-34) pg MCHC 32 (32-36) gm/dL RDW Coeff of Alessandro 15.5 (11.5-15.5) % Plt Count 268 (140-440) K/uL Neut % (Auto) 88.3 H (42.0-72.0) % Lymph % (Auto) 3.6 L (20-44) % [place] % (Auto) 5.7 (0.0-11.0) % Eos % (Auto) 1.8 (0.0-7.0) % Baso % (Auto) 0.2 (0.0-3.0) % Neut # (Auto) 10.30 H (1.7-7.0) K/uL Lymph # (Auto) 0.40 L (0.90-2.90) K/uL [place] # (Auto) 0.70 (0.00-0.90) K/UL Eos # (Auto) 0.20 (0.00-0.50) K/uL Baso # (Auto) 0.00 (0.00-0.30) K/uL Sodium 137 (135-149) mmol/L Potassium 4.1 (3.6-5.1) mmol/L Chloride 103 (96-114) mmol/L Carbon Dioxide 25 (20-32) mmol/L BUN 35 H (7-30) mg/dL Creatinine 1.5 (0.5-1.5) mg/dL Estimated Creat Clear 48.83 Estimated GFR 49 ml/min Glucose 149 H (60-115) mg/dL Lactate 2.0 H 2.1 H (0.5-1.9) mmol/L Calcium 8.0 L (8.4-10.6) mg/dL Total Bilirubin 1.3 (0.1-1.5) mg/dL AST 38 H (12-35) U/L ALT 23 (4-50) U/L Alkaline Phosphatase 186 H (40-150) U/L CK/CKMB % Calc Cancelled Troponin I 0.18 H* (0.01-0.04) ng/mL C-Reactive Protein 18.1 H (0.5-1.0) mg/dL NT-Pro-B Natriuret Pep 14493 pg/mL Total Protein 6.9 (6.0-8.3) g/dL Albumin 3.1 L (3.3-5.0) g/dL SARS-CoV-2 (PCR) Negative SARS-CoV-2 (Negative) Influenza Type A (PCR) POSITIVE PCR FLU A A (Negative) Influenza Type B (PCR) Negative PCR FLU B (Negative) RSV (PCR) Negative PCR RSV (Negative) POC Troponin I 0.17 H (0.01-0.04) ng/ml Imaging Data Chest x-ray: Attestation: I have reviewed the pertinent imaging results. My impression: No obvious infiltrate. Question increased lung markings. Radiologist's impression: FINDINGS: No focal consolidation, pleural effusion, or pneumothorax. There is an 11 mm nodular density in the right lung base which is new or more apparent compared to prior exam. Stable mild cardiomegaly. Normal pulmonary vascularity. The bones are unremarkable. IMPRESSION: 1. No acute cardiopulmonary findings. Stable mild cardiomegaly. 2. Newly apparent 11 mm nodule in the right lung base. This could be further evaluated with CT of the chest. ECG Data Attestation: I personally reviewed and interpreted this ECG as follows: ECG interpretation date: 01/24/23 Prior ECG tracings: available for review Interpretation: EKG 1. By my read shows sinus tachycardia at a rate of 100. Downgoing T-waves noted in 1 and aVL. Poor R-wave progression is noted. Unchanged from 2019 Discharge Plan Discharge Clinical Impression: Congestive heart failure, Cellulitis, Osteomyelitis, Elevated troponin Patient Disposition: Admitted As Inpatient Condition: Unchanged
--- NOTE | 2023-01-24 13:26 | CRLHL7_ITS ---
For Patients: As a result of the Century Cures Act, medical imaging exams and procedure reports are released immediately into your electronic medical record. You may view this report before your referring provider. If you have questions, please contact your health care provider. INDICATION: Cough. TECHNIQUE: Chest 1 view. COMPARISON: Chest radiograph 07/14/2022. FINDINGS: No focal consolidation, pleural effusion, or pneumothorax. There is an 11 mm nodular density in the right lung base which is new or more apparent compared to prior exam. Stable mild cardiomegaly. Normal pulmonary vascularity. The bones are unremarkable. IMPRESSION: 1. No acute cardiopulmonary findings. Stable mild cardiomegaly. 2. Newly apparent 11 mm nodule in the right lung base. This could be further evaluated with CT of the chest. Dictated by Alexandra Zarate MD @ 01/24/2023 3:04:27 PM (Electronically Signed)
[2023-01-24 14:03] LABS: Troponin, Point-of-Care* 0.17 ng/ml (0.01-0.04)
[2023-01-24 14:09] LABS: Basophils Percent Auto 0.2 % (0.0-3.0); Eosinophils Percent Auto 1.8 % (0.0-7.0); Hematocrit 36.2 % (37.0-53.0); Hemoglobin* 11.7 gm/dL (13.5-17.5); Immature Granulocytes Pct Auto 0.4 %; Lymphocytes Percent Auto 3.6 % (20-44); Mean Corpuscular HGB Conc 32 gm/dL (32-36); Mean Corpuscular Hemoglobin 31 pg (26-34); Mean Corpuscular Volume 95 fL (80-100); Monocytes Percent Auto 5.7 % (0.0-11.0); Neutrophils Percent Auto 88.3 % (42.0-72.0); Platelet Count* 268 K/uL (140-440); RDW Coefficient of Variation % 15.5 % (11.5-15.5); Red Blood Count 3.82 m/uL (4.30-5.90); White Blood Count* 11.62 K/uL (4.50-11.00)
[2023-01-24 14:12] LABS: Slide Review Reflex No
[2023-01-24 14:25] LABS: Albumin* 3.1 g/dL (3.3-5.0); Chloride* 103 mmol/L (96-114)
[2023-01-24 14:26] LABS: Potassium* 4.1 mmol/L (3.6-5.1); Sodium* 137 mmol/L (135-149)
[2023-01-24 14:28] LABS: Creatinine* 1.5 mg/dL (0.5-1.5); Est. Creatinine Clearance* 48.83; Estimated Glomerular Filt Rate 49 ml/min
[2023-01-24] MEDS: BENZONATATE 100 MG CAPSULE 200 MG PO (14:28)
[2023-01-24 14:29] LABS: Alanine Aminotransferase* 23 U/L (4-50); Alkaline Phosphatase* 186 U/L (40-150); Aspartate Amino Transferase* 38 U/L (12-35); Bilirubin Total* 1.3 mg/dL (0.1-1.5); Blood Urea Nitrogen* 35 mg/dL (7-30); Carbon Dioxide* 25 mmol/L (20-32); Glucose* 149 mg/dL (60-115); Total Protein* 6.9 g/dL (6.0-8.3)
--- NOTE | 2023-01-24 14:29 | ED.NURSE ---
Attempted IV x 2 without success. Charge nurse at bedside for several attempts, blood obtained but unable to obtain venous access.
[2023-01-24 14:37] LABS: PCR FLU A POSITIVE PCR FLU A (Negative); PCR FLU B Negative PCR FLU B (Negative); PCR RSV Negative PCR RSV (Negative)
[2023-01-24 14:47] LABS: C Reactive Protein* 18.1 mg/dL (0.5-1.0); NT Pro B Type NatriureticPept* 12000 pg/mL; Troponin I* 0.18 ng/mL (0.01-0.04)
--- NOTE | 2023-01-24 14:54 | ED.NURSE ---
Critical value received from lab: troponin I 0.18 notified at [id number]
[2023-01-24 15:17] LABS: SARS PCR* Negative SARS-CoV-2 (Negative)
[2023-01-24] MEDS: FUROSEMIDE 10 MG/ML inj 40 MG IVP (16:32)
--- NOTE | 2023-01-24 17:33 | ED.NURSE ---
POC troponin 0.19 at 1440, unable to chart electronically
[2023-01-24] MEDS: ACETAMINOPHEN 500 MG TABLET 1000 MG PO (18:00)
--- NOTE | 2023-01-24 18:16 | ED.NURSE ---
[facility] nurse Boni updated on plan for admission.
--- NOTE | 2023-01-24 18:35 | P.IMHP_ITS ---
Hospitalist- H&P: HPI History of Present Illness Date Seen: 01/24/23 Chief complaint: Wound Infection Narrative: Marlon Quijano is a 72 year old male with diabetes mellitus, peripheral vascular disease, chronic kidney disease, heart failure, coronary artery disease, peripheral neuropathy admitted to the hospital with worsening redness in his right foot and 2 days of coughing and vomiting and elevated troponin. Patient is been under the care of Dr. Zamora for diabetic foot ulcer. There is a plan to had a amputate his 2nd toe on his right foot in 1 week. He has osteomyelitis net toe. The redness in his foot has been increasing recently. Patient reports for the last 2 days he has had coughing and vomiting. He has been unable to keep down significant food or fluid. He thinks he may have had a fever though not documented. He had a COVID infection in October. He has not had significant cough prior to last 2 days. He reports he does have shortness of breath but no chest pain. He has had amputations of multiple fingertips and 4th and 5th ray amputations on the left foot. He has peripheral neuropathy and no sensation in either foot. Review of Systems Narrative: No other acute concerns except as noted above [facility] Medical History (Updated 01/24/23 @ 19:05 by Lorne Tomlinson MD) Amputation of finger tip ?S68.119A - Complete traumatic metacarpophalangeal amputation of unspecified finger, initial encounter (ICD-10) Amputation of one or more toes ?S98.139A - Complete traumatic amputation of one unspecified lesser toe, initial encounter (ICD-10) Atrial fibrillation ?I48.91 - Unspecified atrial fibrillation (ICD-10) BPH (benign prostatic hyperplasia) ?N40.0 - Benign prostatic hyperplasia without lower urinary tract symptoms (ICD-10) Chronic renal insufficiency ?N18.9 - Chronic kidney disease, unspecified (ICD-10) Diabetes mellitus ?E11.9 - Type 2 diabetes mellitus without complications (ICD-10) Diabetic ulcer of toe ?E11.621 - Type 2 diabetes mellitus with foot ulcer (ICD-10) ?L97.509 - Non-pressure chronic ulcer of other part of unspecified foot with unspecified severity (ICD-10) Epilepsy ?G40.909 - Epilepsy, unspecified, not intractable, without status epilepticus (ICD-10) Hearing loss ?H91.90 - Unspecified hearing loss, unspecified ear (ICD-10) Hyperlipidemia ?E78.5 - Hyperlipidemia, unspecified (ICD-10) Hypertension ?I10 - Essential (primary) hypertension (ICD-10) MRSA (methicillin resistant staph aureus) culture positive ?Z22.322 - Carrier or suspected carrier of Methicillin resistant Staphylococcus aureus (ICD-10) Neuropathy ?G62.9 - Polyneuropathy, unspecified (ICD-10) Obesity ?E66.9 - Obesity, unspecified (ICD-10) Peripheral vascular disease ?I73.9 - Peripheral vascular disease, unspecified (ICD-10) Pressure ulcer ?L89.90 - Pressure ulcer of unspecified site, unspecified stage (ICD-10) Tinea ?B35.9 - Dermatophytosis, unspecified (ICD-10) Vomiting ?R11.10 - Vomiting, unspecified (ICD-10) Surgical History (Updated 01/24/23 @ 18:53 by Lorne Tomlinson MD) History of arthroscopy of knee ?Z98.890 - Other specified postprocedural states (ICD-10) History of arthroscopy of shoulder ?Z98.890 - Other specified postprocedural states (ICD-10) History of carpal tunnel release ?Z98.890 - Other specified postprocedural states (ICD-10) History of inguinal hernia repair ?Z98.890 - Other specified postprocedural states (ICD-10) ?Z87.19 - Personal history of other diseases of the digestive system (ICD-10) Family History (Updated 01/24/23 @ 18:53 by Lorne Tomlinson MD) Father Coronary artery disease Social History (Updated 01/24/23 @ 18:54 by Lorne Tomlinson MD) Narrative: 72-year-old male with remote history of cigarette smoking. Rarely drinks alcohol. Lives at [address] [place] [address]. Code status is DNR Smoking Status: Former smoker Do you use any of these nicotine containing products: None How often do you have a drink containing alcohol: never AUDIT-C Alcohol total score: 0 Non-prescribed substance use: denies use Meds Home Medications and Allergies Home Medications Medication Instructions Recorded Confirmed Type atorvastatin 40 mg tablet 40 mg PO HS 07/14/22 01/24/23 History insulin detemir U-100 100 unit/mL 10 unit subcut HS 07/14/22 01/24/23 History (3 mL) subcutaneous pen (Levemir FlexTouch U-100 Insulin) levetiracetam 1,000 mg tablet 1,000 mg PO QAM 07/14/22 01/24/23 History metoprolol succinate 25 mg 25 mg PO DAILY 07/14/22 01/24/23 History tablet,extended release 24 hr omeprazole 20 mg capsule,delayed 20 mg PO DAILY 07/14/22 01/24/23 History release rivaroxaban 15 mg tablet (Xarelto) 15 mg PO HS 07/14/22 01/24/23 History tamsulosin 0.4 mg capsule 0.4 mg PO HS 07/14/22 01/24/23 History acetaminophen 500 mg tablet 1,000 mg PO BID 07/15/22 01/24/23 History emollient (Vanicream topical) 1 applic topical HS 07/15/22 01/24/23 History furosemide 20 mg tablet 20 mg PO DAILY 07/15/22 01/24/23 History levetiracetam 500 mg tablet 500 mg PO HS 07/15/22 01/24/23 History loperamide 2 mg capsule 2 mg PO QID PRN 07/15/22 01/24/23 History nitroglycerin 0.4 mg sublingual 0.4 mg sublingual Q5M PRN chest 07/15/22 07/15/22 History tablet pain sennosides 8.6 mg tablet (Natural 8.6 mg PO BID PRN 07/15/22 01/24/23 History Senna Laxative) Lactobacillus acidophilus 0.5 mg 1 mg PO BID 01/24/23 01/24/23 History (100 million cell) tablet carboxymethylcellulose sodium 1 % 1 drp ophthalmic (eye) TID 01/24/23 01/24/23 History eye liquid gel drops (Refresh Liquigel) doxycycline hyclate 100 mg capsule 100 mg PO BID 01/24/23 01/24/23 History insulin detemir U-100 100 unit/mL 40 unit subcut QAM 01/24/23 01/24/23 History (3 mL) subcutaneous pen (Levemir FlexPen) sertraline 100 mg tablet 100 mg PO DAILY 01/24/23 01/24/23 History Allergies Allergy/AdvReac Type Severity Reaction Status Date / Time Influenza Virus Vaccines Allergy Unknown Unknown Verified 01/24/23 13:03 Exam Narrative: Exam Narrative: He is alert and oriented to his circumstances he gives his own history. Head is without trauma. Oropharynx with dry mucous membranes. No facial asymmetry. Extraocular movements are full. Neck is notable for a recently placed is central line which is oozing blood from around the sutures. This is controlled with pressure. Respirations are clear to auscultation without wheezing rales or rhonchi. Cardiovascular: S1, S2, irregularly irregular. No murmur gallop or rub. Abdomen: Bowel sounds are active. Abdomen is soft without tenderness or mass. Glilis catheter in place draining clear yellow urine. Lower extremities notable for bilateral chronic venous stasis skin changes. Right lower extremity as mild edema and is somewhat enlarged compared to the left lower extremity. It is not tender though he has neuropathy. No open skin lesions on either leg. Left foot is somewhat cool to touch. I do not palpate a pedal pulse on the left. On the right he has a faint dorsalis pedis pulse. Entire foot is erythematous. He does have fair capillary refill in his right foot. Lieu his 2nd toe has a large ulcer on the plantar surface with a wick in place draining purulent material. He has some maceration in the skin between the toes on his right foot but no other prominent ulcerations or redness. 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 1+ edema of the left lower extremity Const: Vital Signs, click to edit/add: Vital Signs - 24 hr 01/24/23 13:03 01/24/23 14:54 01/24/23 14:55 Temperature 98.7 F Pulse Rate 101 H 106 H Pulse Rate [Pulse Oximeter] 99 Respiratory Rate 26 H Blood Pressure 139/75 Blood Pressure [Le ft Forearm] 137/75 Pulse Oximetry 96 95 97 Oxygen Delivery Me thod Room Air 01/24/23 15:00 01/24/23 15:05 01/24/23 16:26 Temperature Pulse Rate 108 H Pulse Rate [Pulse Oximeter] Respiratory Rate Blood Pressure 117/71 126/73 Blood Pressure [Le ft Forearm] Pulse Oximetry 98 Oxygen Delivery Me thod 01/24/23 16:32 01/24/23 16:38 Temperature 99.3 F Pulse Rate 127 H Pulse Rate [Pulse Oximeter] Respiratory Rate Blood Pressure 113/101 H Blood Pressure [Le ft Forearm] Pulse Oximetry 96 Oxygen Delivery Me thod Documenting provider has reviewed patient's vital signs: yes Hospitalist - H&P: Result Labs Labs: Short CBC 01/24/23 Range/Units 14:00 WBC 11.62 H (4.50-11.00) K/uL Hgb 11.7 L (13.5-17.5) gm/dL Hct 36.2 L (37.0-53.0) % Plt Count 268 (140-440) K/uL BMP 01/24/23 14:00 Sodium 137 Potassium 4.1 Chloride 103 Carbon Dioxide 25 BUN 35 H Creatinine 1.5 Glucose 149 H Calcium 8.0 L Cardiac Enzymes 01/24/23 Range/Units 14:00 Troponin I 0.18 H* (0.01-0.04) ng/mL Liver Function 01/24/23 Range/Units 14:00 Total Bilirubin 1.3 (0.1-1.5) mg/dL AST 38 H (12-35) U/L ALT 23 (4-50) U/L Alkaline Phosphatase 186 H (40-150) U/L Albumin 3.1 L (3.3-5.0) g/dL ECG Attestation: I personally reviewed and interpreted this ECG as follows: (Atrial fibrillation with a rate of 100. No acute ST-T changes. ) Imaging Chest x-ray: Attestation: I have reviewed the pertinent imaging results. (Portable chest x-ray without obvious infiltrate or pulmonary edema) Assessment and Plan Assessment and plan (1) Osteomyelitis: Problem comment: MRI shows osteomyelitis of the right 2nd toe. Pending surgery in 1 week. Consult Podiatry Status: Acute (2) Diabetic ulcer of toe: Problem comment: With osteomyelitis of the 2nd right toe Status: Acute (3) Cellulitis: Problem comment: Involving the right foot Status: Acute (4) MRSA (methicillin resistant staph aureus) culture positive: Problem comment: History of MRSA infection. Initiate vancomycin. Status: Acute (5) Elevated troponin: Problem comment: Monitor for symptoms Suspect type 2 non STEMI related to influenza infection. Monitor for symptoms. Trend troponin Status: Acute (6) Influenza A: Problem comment: Likely the cause of his 2 days of severe cough, dyspnea and vomiting. Hospital time of year Status: Acute (7) Chronic renal insufficiency: Problem comment: Dose medications for renal function. Monitor closely Status: Acute (8) Neuropathy: Problem comment: Severe diabetic neuropathy involving the feet Status: Acute (9) Diabetes mellitus: Problem comment: Managed in the retirement with twice daily Levemir. I am going to switch to twice daily Novolin 70 30 with a goal of minimizing hyper and hypoglycemia Status: Chronic (10) Atrial fibrillation: Problem comment: On Rate control and anticoagulation. Hold anticoagulation pending decision about surgery. Status: Chronic (11) Peripheral vascular disease: Status: Chronic (12) BPH (benign prostatic hyperplasia): Problem comment: Currently Gillis in place. Will continue for monitoring urine output. Consider trial of voiding when stabilized Status: Chronic (13) Congestive heart failure: Problem comment: Continue to monitor. History of heart failure with preserved ejection fraction. Status: Chronic Plan 72-year-old male admitted to the hospital with influenza a causing coughing and vomiting and dyspnea for 2 days. In addition has cellulitis of the right foot and osteomyelitis of the right 2nd toe. Will obtain culture of his wound. Consult surgery/Podiatry. Monitor cardiac status and troponin with coronary artery disease. He will be treated with vancomycin and cefepime pending cultures. Oseltemavir for influenza. Monitor respiratory status, renal function, cardiac status Total time spent today is 90 minutes, 50 minutes in coordination of care and discussing with patient and other providers ongoing evaluation management.
--- NOTE | 2023-01-24 18:43 | ED.NURSE ---
Tylenol 1000mg given prior to patient admission to floor. Patient transported with Vanco infusing.
[2023-01-24 19:13] LABS: Lactate* 2.1 mmol/L (0.5-1.9)
[2023-01-24 19:25] LABS: Phosphorus* 3.5 mg/dL (2.5-4.5)
[2023-01-24] MEDS: PIPERACILLIN/TAZOBACTAM 3.375 GM in 0.9 % SODIUM CHLORIDE Mini-bag 100 ML IVPB (22:00)
[2023-01-24] MEDS: CEFEPIME HCL 2 GM in 0.9 % SODIUM CHLORIDE Mini-bag 100 ML IVPB (22:02)
[2023-01-24] MEDS: CARBOXYMETHYLCELLULOSE (REFRESH PLUS) TEARS 1 DROP EYE-BOTH (22:04)
[2023-01-24] MEDS: OSELTAMIVIR 30 MG CAPSULE PO (22:04)
[2023-01-24] MEDS: LACTOBACILLUS ACIDOPHILUS 1 TABLET 1 TAB PO (22:04)
[2023-01-24] MEDS: levETIRAcetam 500 MG TABLET PO (22:04)
[2023-01-24] MEDS: ATORVASTATIN CALCIUM 40 MG TABLET PO (22:04)
[2023-01-24] MEDS: TAMSULOSIN HCL 0.4 MG CAPSULE PO (22:05)
[2023-01-24] MEDS: HEPARIN 500 UNIT/5 ML SYRINGE IVF ×2 (22:45→23:39)
[2023-01-24] MEDS: SODIUM CHLORIDE 0.9 % (FLUSH) 10 ML SYRINGE 5 ML IVF (23:36)
--- NOTE | 2023-01-24 23:56 | PC.NURSE ---
Nursing Care Hours: [id number] Pt this shift recently admitted to floor. VSS, L lung expiratory wheeze on auscultation. Central line placed in ED, covered with gauze and tape, both saturated with sanguinous fluid. [employer] assisted charge nurse with dressing change. Per hospitalist, replace with sterile gauze and tape until bleeding stops. Xarelto held per hospitalist. 3rd toe R foot, packed with steri strips. Strips 1.[address], purulent fluid saturated. Area cleaned with normal saline and reinforced with gauze and tape. R leg slightly warmer than left leg. No increased redness. Edema increased in R foot compared to left. Bilat legs dry and flaky, no redness. Gillis catheter patent. Large incontinent BM. Pt refused brief change, but after multiple attempts to educate patient on skin care and risk for infection, pt allowed brief change. Bilat groin creases red and tender. R side has open sore, no SS of infection present. Area cleaned, dried, barrier cream applied. Redness noted on scrotum, area also received barrier cream. Old sore on L glute has pinpoint open area. Barrier cream applied.
[2023-01-25] VITALS (10 sets, daily range): BP systolic 99–148; BP diastolic 52–88; PULSE 84–112; RESP 20–40; TEMP 36.7–37.2; O2SAT 86–97
[2023-01-25] MEDS: CEFEPIME HCL 2 GM in 0.9 % SODIUM CHLORIDE Mini-bag 100 ML IVPB ×2 (06:51→18:30)
--- NOTE | 2023-01-25 07:12 | PC.NURSE ---
Shift note: Pt is doing, has been bed throughout the shift. Denied pain, SOB but felt nauseated but no vomiting. Urinary cath is patent and draining coni colored urine with normal odor. Pt refused DAVIDA and preferred to sleep through 0300, therefore Bp at 0300 was not checked. Refused reposition.
[2023-01-25 07:24] LABS: HCO3 VBG 22 mmol/L (21-28); PCO2 VBG 42 mmHG (40-50); PO2 VBG 36.4 mmHG (25-47); pH VBG 7.331 (7.32-7.43)
[2023-01-25 07:29] LABS: Basophils Absolute Auto 0.02 K/uL (0.00-0.30); Basophils Percent Auto 0.3 % (0.0-3.0); Eosinophils Absolute Auto 0.03 K/uL (0.00-0.50); Eosinophils Percent Auto 0.4 % (0.0-7.0); Hematocrit 35.2 % (37.0-53.0); Hemoglobin* 11.2 gm/dL (13.5-17.5); Immature Granulocytes Abs Auto 0.05 K/uL (0.00-0.30); Immature Granulocytes Pct Auto 0.6 %; Lymphocytes Percent Auto 2.1 % (20-44); Mean Corpuscular HGB Conc 32 gm/dL (32-36); Mean Corpuscular Hemoglobin 30 pg (26-34); Mean Corpuscular Volume 95 fL (80-100); Monocytes Percent Auto 12.7 % (0.0-11.0); Neutrophils Percent Auto 83.9 % (42.0-72.0); Platelet Count* 255 K/uL (140-440); RDW Coefficient of Variation % 15.4 % (11.5-15.5); Red Blood Count 3.69 m/uL (4.30-5.90); White Blood Count* 7.98 K/uL (4.50-11.00)
[2023-01-25 07:32] LABS: Slide Review Reflex No
[2023-01-25 07:40] LABS: Chloride* 105 mmol/L (96-114); Potassium* 4.1 mmol/L (3.6-5.1); Sodium* 136 mmol/L (135-149)
[2023-01-25 07:43] LABS: Carbon Dioxide* 20 mmol/L (20-32); Creatinine* 1.7 mg/dL (0.5-1.5); Est. Creatinine Clearance* 43.08; Estimated Glomerular Filt Rate 42 ml/min
[2023-01-25 07:44] LABS: Blood Urea Nitrogen* 39 mg/dL (7-30); Calcium* 7.7 mg/dL (8.4-10.6); Glucose* 174 mg/dL (60-115); Magnesium* 1.4 mg/dL (1.5-2.6)
[2023-01-25 08:00] LABS: C Reactive Protein* 21.4 mg/dL (0.5-1.0); Troponin I* 8.57 ng/mL (0.01-0.04)
[2023-01-25] MEDS: ACETAMINOPHEN 500 MG TABLET 1000 MG PO (08:58)
[2023-01-25] MEDS: FUROSEMIDE 20 MG TABLET PO (08:58)
[2023-01-25] MEDS: SERTRALINE 100 MG TABLET PO (08:58)
[2023-01-25] MEDS: levETIRAcetam 500 MG TABLET 1000 MG PO (08:58)
[2023-01-25] MEDS: METOPROLOL SUCCINATE (XL) 25 MG TAB PO (08:58)
[2023-01-25] MEDS: OSELTAMIVIR 30 MG CAPSULE PO (08:58)
[2023-01-25] MEDS: HEPARIN 500 UNIT/5 ML SYRINGE IVF ×3 (08:59→18:20)
[2023-01-25] MEDS: LACTOBACILLUS ACIDOPHILUS 1 TABLET 1 TAB PO (09:04)
[2023-01-25] MEDS: OMEPRAZOLE 20 MG CAPSULE DR PO (09:05)
[2023-01-25] MEDS: INSULIN PROT/ASP (NOVOLOG 70/30) 100 UNIT/ML 30 UNIT SUBCUT (09:11)
--- NOTE | 2023-01-25 09:38 | P.DS_ITS ---
Documented by User: Marie Calderon MD 01/26/23 14:00 Transfer Discharge Sum: Prov Provider Time Seen by Provider: 08:24 Date Seen: 01/25/23 Date of admission: 01/24/23 17:49 Primary care physician: Zain Nash MD Attending physician on discharge: Marie Calderon Discharging clinician: Marie Calderon Anticipated date of transfer: 01/25/23 Receiving physician/facility: [facility] DS: Diagnosis Discharge Diagnosis (1) Elevated troponin: Status: Acute Problem details: Mildly abnormal stress test 01/15. Currently no CP or chest discomfort. He is short of breath, but also having bilateral crackles, I suspect he is in acute heart failure. Troponin is rising, now at 8. EKG is unchanged except now he is in RVR with atrial fibrillation. Monitor on telemetry. I spoke with Dr. Varma from [facility] at [place]. I suspect he is having a type 2 non STEMI, however with the rapidly rising troponin, he will need transfer for angiogram. Dr. Varma recommended starting him on IV heparin, holding Xarelto, giving aspirin, and giving metoprolol to slow the rate. I will also give him Lasix for heart failure. He is on a short wait list at [place] and will likely transfer there today. He is currently hemodynamically stable and so we will wait for that bed to be available. If his condition worsens, Dr. Varma mentioned that they could take him more urgently if that happened. Transfer to [facility] for cardiology. Dr Teran is accepting hospitalist. (2) Atrial fibrillation with RVR: Status: Acute Problem details: Anticoagulation on hold both for pending surgery and need for angiogram. Will give extra metoprolol IV this morning for RVR. He will be on IV heparin for now for elevated troponin. (3) Influenza A: Status: Acute Problem details: Likely the cause of his 2 days of severe cough, dyspnea and vomiting. He is currently on Tamiflu for this. (4) Congestive heart failure: Status: Chronic Problem details: History of heart failure with preserved ejection fraction. Currently having myocardial infarction with elevated troponin, suspect he is also in acute on chronic heart failure. Furosemide given. Echo pending. Possible bicuspid Aortic valve. (5) Osteomyelitis: Status: Acute Problem details: MRI shows osteomyelitis of the right 2nd toe. Pending surgery in 1 week, although markedly elevated troponin takes precedence at this time. Continue IV cefepime and vancomycin. Superficial cultures pending. (6) Cellulitis: Status: Acute Problem details: Involving the right foot. Continue IV cefepime and vancomycin as above. (7) Diabetic ulcer of toe: Status: Acute Problem details: With osteomyelitis of the 2nd right toe. As above. (8) MRSA (methicillin resistant staph aureus) culture positive: Status: Acute Problem details: History of MRSA infection. Continue vancomycin. (9) Obesity: Status: Chronic (10) Diabetes mellitus: Status: Chronic Problem details: Managed in the [facility] with twice daily Levemir. Continue current regimen of insulin with 70/30 and with a sliding scale. (11) Chronic renal insufficiency: Status: Acute Problem details: Dose medications for renal function. Monitor closely (12) Peripheral vascular disease: Status: Chronic Problem details: May complicate healing process if surgery needed. (13) Hyperlipidemia: Status: Chronic Problem details: Continue home medications. (14) BPH (benign prostatic hyperplasia): Status: Chronic Problem details: Currently Gillis in place. Will continue for monitoring urine output. Consider trial of voiding when stabilized (15) Hypertension: Status: Chronic (16) Obstructive sleep apnea: Status: Acute Problem details: Did not tolerate CPAP Transfer Discharge Sum: Med Medications Active and Home Medications: Home Medications atorvastatin 40 mg tablet 40 mg PO HS 07/14/22 [History Confirmed 01/24/23] insulin detemir U-100 100 unit/mL (3 mL) subcutaneous pen (Levemir FlexTouch U- 100 Insulin) 10 unit subcut HS 07/14/22 [History Confirmed 01/24/23] levetiracetam 1,000 mg tablet 1,000 mg PO [facility] 07/14/22 [History Confirmed 01/24/23] metoprolol succinate 25 mg tablet,extended release 24 hr 25 mg PO DAILY 07/14/22 [History Confirmed 01/24/23] omeprazole 20 mg capsule,delayed release 20 mg PO DAILY 07/14/22 [History Confirmed 01/24/23] rivaroxaban 15 mg tablet (Xarelto) 15 mg PO HS 07/14/22 [History Confirmed 01/24/23] tamsulosin 0.4 mg capsule 0.4 mg PO HS 07/14/22 [History Confirmed 01/24/23] acetaminophen 500 mg tablet 1,000 mg PO BID 07/15/22 [History Confirmed 01/24] emollient (Vanicream topical) 1 applic topical HS 07/15/22 [History Confirmed 01/24/23] furosemide 20 mg tablet 20 mg PO DAILY 07/15/22 [History Confirmed 01/24/23] levetiracetam 500 mg tablet 500 mg PO HS 07/15/22 [History Confirmed 01/24/23] loperamide 2 mg capsule 2 mg PO QID PRN 07/15/22 [History Confirmed 01/24/23] nitroglycerin 0.4 mg sublingual tablet 0.4 mg sublingual Q5M PRN chest pain 07/15/22 [History Confirmed 07/15/22] sennosides 8.6 mg tablet (Natural Senna Laxative) 8.6 mg PO BID PRN 07/15/22 [History Confirmed 01/24/23] Lactobacillus acidophilus 0.5 mg (100 million cell) tablet 1 mg PO BID 01/24/23 [History Confirmed 01/24/23] carboxymethylcellulose sodium 1 % eye liquid gel drops (Refresh Liquigel) 1 drp ophthalmic (eye) TID 01/24/23 [History Confirmed 01/24/23] doxycycline hyclate 100 mg capsule 100 mg PO BID 01/24/23 [History Confirmed 01/24/23] insulin detemir U-100 100 unit/mL (3 mL) subcutaneous pen (Levemir FlexPen) 40 unit subcut QAM 01/24/23 [History Confirmed 01/24/23] sertraline 100 mg tablet 100 mg PO DAILY 01/24/23 [History Confirmed 01/24/23] Active Medications Acetaminophen (Acetaminophen 500 Mg Tablet) 1,000 mg PO BID [facility] Last Admin: 01/25/23 08:58 Dose: 1,000 mg Artificial Tears (Carboxymethylcellulose (Refresh Plus) Tears) 1 drop EYE-BOTH TID [facility] Last Admin: 01/25/23 08:58 Dose: 1 drop Atorvastatin Calcium (Atorvastatin Calcium 40 Mg Tablet) 40 mg PO HS [facility] Last Admin: 01/24/23 22:04 Dose: 40 mg Enoxaparin Sodium (Enoxaparin 40 Mg/0.4 Ml Inj) 40 mg SUBCUT Q24H [facility] Furosemide (Furosemide 20 Mg Tablet) 20 mg PO DAILY@0800 [facility] Last Admin: 01/25/23 08:58 Dose: 20 mg Heparin Sodium (Porcine) (Heparin 500 Unit/5 Ml Syringe) 500 unit IVF Q12H [facility] Last Admin: 01/25/23 08:59 Dose: 500 unit Heparin Sodium (Porcine) (Heparin 500 Unit/5 Ml Syringe) 500 unit IVF FLUSHPRN PRN Last Admin: 01/24/23 23:39 Dose: 500 unit Vancomycin HCl 2,000 mg/ (Sodium Chloride) 520 mls @ 257.5 mls/hr IVPB Q24H [facility]; Protocol Cefepime HCl 2 gm/ Sodium (Chloride) 100 mls @ 200 mls/hr IVPB Q12H [facility] Last Admin: 01/25/23 06:51 Dose: 200 mls/hr Insulin Aspart (Insulin Aspart 100 Unit/Ml (Novolog)) 0 unit SUBCUT ACHS [facility]; Protocol Last Admin: 01/25/23 09:06 Dose: 2 unit Insulin Aspart (Insulin Prot/Asp (Novolog 70/30) 100 Unit/Ml) 15 unit SUBCUT QPM [facility] Insulin Aspart (Insulin Prot/Asp (Novolog 70/30) 100 Unit/Ml) 30 unit SUBCUT QAM [facility] Last Admin: 01/25/23 09:11 Dose: 30 unit Insulin Detemir (Insulin Detemir (Levemir) 100 Unit/Ml) 10 unit SUBCUT HS [facility] Last Admin: 01/24/23 22:12 Dose: 10 unit Lactobacillus Acidophilus (Lactobacillus Acidophilus 1 Tablet) 1 tab PO BID [facility] Last Admin: 01/25/23 09:04 Dose: 1 tab Levetiracetam (Levetiracetam 500 Mg Tablet) 1,000 mg PO DAILY [facility] Last Admin: 01/25/23 08:58 Dose: 1,000 mg Levetiracetam (Levetiracetam 500 Mg Tablet) 500 mg PO HS [facility] Last Admin: 01/24/23 22:04 Dose: 500 mg Loperamide HCl (Loperamide Hcl 2 Mg Capsule) 2 mg PO QID PRN Melatonin (Melatonin 3 Mg Tablet) 3 mg PO HS PRN Metoprolol Succinate (Metoprolol Succinate (Xl) 25 Mg Tab) 25 mg PO DAILY [facility] Last Admin: 01/25/23 08:58 Dose: 25 mg Multi-Ingredient Cream (Emollient Base Cream) 1 applic TOPICAL [facility] Nitroglycerin (Nitroglycerin 0.4 Mg Tab.Subl) 0.4 mg SUBLINGUAL Q5M PRN PRN Reason: chest pain Omeprazole (Omeprazole [address]) 20 mg PO DAILY@0700 [facility] Last Admin: 01/25/23 09:05 Dose: 20 mg Ondansetron HCl (Ondansetron 2 Mg/Ml Inj) 4 mg IVP Q4H PRN PRN Reason: Nausea Oseltamivir Phosphate (Oseltamivir 30 Mg Capsule) 30 mg PO BID [facility] Stop: 01/29/23 09:01 Last Admin: 01/25/23 08:58 Dose: 30 mg Oxycodone HCl (Oxycodone 5 Mg Tablet) 2.5 mg PO Q4H PRN Sennosides (Sennosides 1 Tab Tablet) 1 tab PO BID PRN Sertraline HCl (Sertraline 100 Mg Tablet) 100 mg PO DAILY [facility] Last Admin: 01/25/23 08:58 Dose: 100 mg Sodium Chloride (Sodium Chloride 0.9 % (Flush) 10 Ml Syringe) 5 ml IVF BID [facility] Last Admin: 01/24/23 23:36 Dose: 5 ml Sodium Chloride (Sodium Chloride 0.9 % (Flush) 10 Ml Syringe) 5 ml IVF .FLUSH PRN Tamsulosin HCl (Tamsulosin Hcl 0.4 Mg Capsule) 0.4 mg PO [facility] Last Admin: 01/24/23 22:05 Dose: 0.4 mg Transfer Discharge Sum: Hosp Hospital Course Hospital course: Marlon Quijano is a 72 year old male with a complicated medical history. He came in positive for influenza A and with a right 2nd toe osteomyelitis. His troponin has continued to rise precipitously indicating infarction. EKG is unchanged. He is on a wait list to transfer to [place] for angiogram. Please see diagnoses above for more details. Time Spent with Patient Time attestation: Total time spent providing and/or coordinating transfer services: Exam Narrative: Exam Narrative: General: No acute distress. Awake, alert, oriented. Cardiovascular: Irregularly irregular. Chest: Nontender to palpation. No increased work of breathing. Bibasilar crackles. Abdomen: Bowel sounds present. Soft, nondistended, nontender. No hepatosplenomegaly or masses. 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 Bilateral lower extremity edema. Const: Vital Signs, click to edit/add: Vital Signs - 24 hr 01/24/23 13:03 01/24/23 14:54 01/24/23 14:55 Temperature 98.7 F Pulse Rate 101 H 106 H Pulse Rate [Pulse Oximeter] 99 Respiratory Rate 26 H Blood Pressure 139/75 Blood Pressure [Le ft Forearm] 137/75 Blood Pressure [Ri ght Arm] Pulse Oximetry 96 95 97 Oxygen Delivery Me thod Room Air 01/24/23 15:00 01/24/23 15:05 01/24/23 16:26 Temperature Pulse Rate 108 H Pulse Rate [Pulse Oximeter] Respiratory Rate Blood Pressure 117/71 126/73 Blood Pressure [Le ft Forearm] Blood Pressure [Ri ght Arm] Pulse Oximetry 98 Oxygen Delivery Me thod 01/24/23 16:32 01/24/23 16:38 01/24/23 16:54 Temperature 99.3 F Pulse Rate 127 H 109 H Pulse Rate [Pulse Oximeter] Respiratory Rate Blood Pressure 113/101 H Blood Pressure [Le ft Forearm] Blood Pressure [Ri ght Arm] Pulse Oximetry 96 90 Oxygen Delivery Me thod 01/24/23 17:02 01/24/23 17:32 01/24/23 18:02 Temperature Pulse Rate Pulse Rate [Pulse Oximeter] Respiratory Rate Blood Pressure 128/103 H 118/97 H 131/80 Blood Pressure [Le ft Forearm] Blood Pressure [Ri ght Arm] Pulse Oximetry Oxygen Delivery Me thod 01/24/23 18:41 01/24/23 19:15 01/24/23 23:00 Temperature 98.8 F Pulse Rate Pulse Rate [Pulse Oximeter] 123 H 99 Respiratory Rate 26 H 20 20 Blood Pressure Blood Pressure [Le ft Forearm] Blood Pressure [Ri ght Arm] 121/81 Pulse Oximetry 93 96 Oxygen Delivery Me thod Room Air Room Air 01/24/23 23:00 01/24/23 23:00 01/24/23 19:37 Temperature 98.9 F 98.5 F Pulse Rate Pulse Rate [Pulse Oximeter] 99 120 H Respiratory Rate 20 20 20 Blood Pressure Blood Pressure [Le ft Forearm] Blood Pressure [Ri ght Arm] 150/93 H Pulse Oximetry 96 96 94 Oxygen Delivery Me thod Room Air Room Air Room Air 01/24/23 19:37 01/24/23 19:37 01/25/23 03:00 Temperature 98.2 F Pulse Rate Pulse Rate [Pulse Oximeter] 99 91 Respiratory Rate 20 20 20 Blood Pressure Blood Pressure [Le ft Forearm] Blood Pressure [Ri ght Arm] Pulse Oximetry 94 96 Oxygen Delivery Me thod Room Air Room Air Documenting provider has reviewed patient's vital signs: yes Transfer Discharge Sum: Data Data Completed and Pending Completed studies during hospitalization: Ordering Physician: Ngoc Gr M.D. Date of Service: 01/24/23 Procedure(s): XR chest 1V portable Accession Number(s): [id number] cc: Ngoc Gr M.D.; Zain Nash M.D.~ For Patients: As a result of the Cures Act, medical imaging exams and procedure reports are released immediately into your electronic medical record. You may view this report before your referring provider. If you have questions, please contact your health care provider. INDICATION: Venous catheter placement. TECHNIQUE: Chest one views. COMPARISON: Same day. FINDINGS: Underpenetration. Right-sided central venous catheter with tip overlying the expected location of the mid SVC. Lungs: Normal lung volume. No consolidation. Basilar heterogeneous airspace opacities likely subsegmental atelectasis. Pleura: No pleural effusion or pneumothorax. Heart and Mediastinum: Borderline cardiomegaly. The great vessels of the thorax are unremarkable. Bones: No acute displaced osseous process. IMPRESSION: Right-sided central venous catheter with tip overlying the expected location of the mid SVC. Dictated by Wesley Mosquera MD @ 01/24/2023 5:42:30 PM (Electronically Signed) Ordering Physician: Ngoc Gr M.D. Date of Service: 01/24/23 Procedure(s): XR chest 1V portable Accession Number(s): [id number] cc: Ngoc Gr M.D.; Zain Nash M.D.~ For Patients: As a result of the Cures Act, medical imaging exams and procedure reports are released immediately into your electronic medical record. You may view this report before your referring provider. If you have questions, please contact your health care provider. INDICATION: Cough. TECHNIQUE: Chest 1 view. COMPARISON: Chest radiograph 07/14/2022. FINDINGS: No focal consolidation, pleural effusion, or pneumothorax. There is an 11 mm nodular density in the right lung base which is new or more apparent compared to prior exam. Stable mild cardiomegaly. Normal pulmonary vascularity. The bones are unremarkable. IMPRESSION: 1. No acute cardiopulmonary findings. Stable mild cardiomegaly. 2. Newly apparent 11 mm nodule in the right lung base. This could be further evaluated with CT of the chest. Dictated by Alexandra Zarate MD @ 01/24/2023 3:04:27 PM (Electronically Signed) Discharge Plan Discharge Disposition: [facility] Discharge Location: [facility] Date of Admission: 01/24/23 17:49 Attending Provider on Discharge: Lorne Tomlinson Primary Care Provider: Zain Nash Condition: Unchanged Oxygen: Yes Oxygen Delivery Method: Nasal Cannula Oxygen Flow Rate: 2 Urinary Catheter: Yes Documented by User: Lorne Tomlinson MD 01/25/23 16:09 DS: Diagnosis Discharge Diagnosis (1) Elevated troponin: Status: Acute Problem details: Mildly abnormal stress test 01/15. Currently no CP or chest discomfort. He is short of breath, but also having bilateral crackles, I suspect he is in acute heart failure. Troponin is rising, now at 8. EKG is unchanged except now he is in RVR with atrial fibrillation. Monitor on telemetry. I spoke with Dr. Varma from [facility] at [place]. I suspect he is having a type 2 non STEMI, however with the rapidly rising troponin, he will need transfer for angiogram. Dr. Varma recommended starting him on IV heparin, holding Xarelto, giving aspirin, and giving metoprolol to slow the rate. I will also give him Lasix for heart failure. He is on a short wait list at [place] and will likely transfer there today. He is currently hemodynamically stable and so we will wait for that bed to be available. If his condition worsens, Dr. Varma mentioned that they could take him more urgently if that happened. Transfer to [facility] for cardiology. Dr Teran is accepting hospitalist. (2) Atrial fibrillation with RVR: Status: Acute Problem details: Anticoagulation on hold both for pending surgery and need for angiogram. Will give extra metoprolol IV this morning for RVR. He will be on IV heparin for now for elevated troponin. (3) Influenza A: Status: Acute Problem details: Likely the cause of his 2 days of severe cough, dyspnea and vomiting. He is currently on Tamiflu for this. (4) Congestive heart failure: Status: Chronic Problem details: History of heart failure with preserved ejection fraction. Currently having myocardial infarction with elevated troponin, suspect he is also in acute on chronic heart failure. Furosemide given. Echo pending. Possible bicuspid Aortic valve. (5) Osteomyelitis: Status: Acute Problem details: MRI shows osteomyelitis of the right 2nd toe. Pending surgery in 1 week, although markedly elevated troponin takes precedence at this time. Continue IV cefepime and vancomycin. Superficial cultures pending. (6) Cellulitis: Status: Acute Problem details: Involving the right foot. Continue IV cefepime and vancomycin as above. (7) Diabetic ulcer of toe: Status: Acute Problem details: With osteomyelitis of the 2nd right toe. As above. (8) MRSA (methicillin resistant staph aureus) culture positive: Status: Acute Problem details: History of MRSA infection. Continue vancomycin. (9) Obesity: Status: Chronic (10) Diabetes mellitus: Status: Chronic Problem details: Managed in the [facility] with twice daily Levemir. Continue current regimen of insulin with 70/30 and with a sliding scale. (11) Chronic renal insufficiency: Status: Acute Problem details: Dose medications for renal function. Monitor closely (12) Peripheral vascular disease: Status: Chronic Problem details: May complicate healing process if surgery needed. (13) Hyperlipidemia: Status: Chronic Problem details: Continue home medications. (14) BPH (benign prostatic hyperplasia): Status: Chronic Problem details: Currently Gillis in place. Will continue for monitoring urine output. Consider trial of voiding when stabilized (15) Hypertension: Status: Chronic (16) Obstructive sleep apnea: Status: Acute Problem details: Did not tolerate CPAP Transfer Discharge Sum: A/P Plan Functional capacity at transfer: bed bound Discharge Plan Discharge Disposition: [facility] Discharge Location: [facility] Date of Admission: 01/24/23 17:49 Attending Provider on Discharge: Lorne Tomlinson Primary Care Provider: Zain Nash Condition: Unchanged Oxygen: Yes Oxygen Delivery Method: Nasal Cannula Oxygen Flow Rate: 2 Urinary Catheter: Yes
[2023-01-25] MEDS: FUROSEMIDE 10 MG/ML inj 40 MG IVP (10:03)
--- NOTE | 2023-01-25 10:04 | PM.PROC ---
Procedure Note Date Seen: 01/24/23 Will [facility] bill your pro fee for this procedure?: Yes Pre-op diagnosis: Congestive heart failure, need for IV access Post-op diagnosis: same Procedure: Central Line, Right internal jugular vein Procedure Description: The patient's right internal jugular vein was visualized using ultrasound. Local anesthetic was injected into the neck skin above the vein. This was accessed percutaneously via Seldinger technique using ultrasound guidance. A skin serenity was made around the wire. A dilator was then used to dilate the vein, this was performed over the wire. The dilator was then removed and a three way central line placed over the wire. The wire was removed without difficulty. All three ports aspirated easily and were flushed. The catheter was secured in place at 15cm at the skin. Sterile dressings were applied. A post procedure CXR confirmed appropriate placement in the SVC with no evidence of complication. Anesthesia: local Surgeon: Gabriella Pickard MD Estimated blood loss (mL): 2 Pathology: none sent Condition: stable Disposition: floor
[2023-01-25] MEDS: ASPIRIN 81 MG TAB.CHEW 324 MG PO (10:07)
[2023-01-25] MEDS: METOPROLOL TARTRATE 1 MG/ML inj 5 MG IVP (10:09)
[2023-01-25] MEDS: MAGNESIUM IV 2 GM/50 ML PIGGYBACK IVPB (10:14)
[2023-01-25] MEDS: HEPARIN 5,000 UNIT/0.5 ML INJ 4000 UNIT IVP (10:19)
[2023-01-25] MEDS: HEPARIN 25,000 UNIT/500 ML BAG 0.24 UNIT IV (10:22)
[2023-01-25 11:15] LABS: Partial Thromboplastin Time* 44 Seconds (23-33); Prothrombin Time 24.6 Seconds
[2023-01-25] MEDS: SODIUM CHLORIDE 0.9 % (FLUSH) 10 ML SYRINGE 5 ML IVF (11:55)
[2023-01-25] MEDS: guaiFENesin 100 MG/ML CUP PO ×2 (12:19→18:51)
[2023-01-25] MEDS: BENZOCAINE/MENTHOL 1 EACH LOZENGE MUCOUS MEM (12:19)
[2023-01-25 17:22] LABS: Partial Thromboplastin Time* > 180 Seconds (23-33)
--- NOTE | 2023-01-25 18:07 | PC.NURSE ---
Patient with poor appetite today and lethargy. Patient able to tolerate grapes, strawberries, pudding and jello. Patient vitally stable this afternoon. Patient with abnormal troponin level this am and ECG was performed to evaluate. ECG revealed afib with RVR. Patient placed on 2lpm of oxygen d/t low oxygen saturation. Patient heart rate elevated at 115 bpm. Patient received lasix 40mg IV and metoprolol 5 mg IV. Patient HR decreased to 80 and oxygen saturation at 97% on 2 lpm. Provider determined patient having a NSTEMI and will be transferred to [facility] in [place]. Nursing gave nurse to nurse report to Marita at [facility] in [place]. Call back #[phone] and nurse requests call once patient is leaving facility. Patient remains incontinent of bowel and has a valenzuela in place. Patient remains on tele monitoring. Patient RR decreased. Patient received mucinex prn for cough. Patient remains on droplet precautions for influenza A. Patient POA updated on patient transferring to [facility] for higher level of care. Will continue to monitor patient while in facility's care.
[2023-01-25] MEDS: INSULIN PROT/ASP (NOVOLOG 70/30) 100 UNIT/ML 15 UNIT SUBCUT (18:14)
[2023-01-25] MEDS: HEPARIN 25,000 UNIT/500 ML BAG 12 UNIT IV (18:41)
--- NOTE | 2023-01-25 20:24 | PC.NURSE ---
DISCHARGE NOTE: Pt A&O, pleasant and cooperative. Denies pain or discomfort. Denies CP, N/V. SOB with exertion. Oxygen saturation >90% on 2L O2 PNC. Afebrile. Triple lumen patent. EMS arrived to take pt to [facility], pt left with EMS at 2014 with all belongings sent with pt/EMS. Nurse Marita at [facility] was given report and updated when pt left [facility], Marita was also made aware of the pt's need for a PTT draw at 2330.
[2023-02-05 16:09] LABS: Troponin, Point-of-Care* 0.19 ng/ml (0.01-0.04)
== END 2023-01-25 20:15 | disposition short-term general hospital (02) | DRG 194 ==
LOC: ED 17:06 → MEDSURG 17:45
PROVIDERS: Family Medicine; Admitting Provider Family Medicine; Emergency Provider Family Medicine; PCP Family Medicine; Visit Provider Family Medicine
DX: I13.0 Hypertensive heart and chronic kidney disease with heart failure and stage 1 through stage 4 chronic kidney disease, or unspecified chronic kidney disease (principal); I50.33 Acute on chronic diastolic (congestive) heart failure; I21.A1 Myocardial infarction type 2; J10.1 Influenza due to other identified influenza virus with other respiratory manifestations; E11.621 Type 2 diabetes mellitus with foot ulcer; L97.519 Non-pressure chronic ulcer of other part of right foot with unspecified severity; M86.171 Other acute osteomyelitis, right ankle and foot; N18.9 Chronic kidney disease, unspecified; E11.22 Type 2 diabetes mellitus with diabetic chronic kidney disease; E11.69 Type 2 diabetes mellitus with other specified complication; E11.42 Type 2 diabetes mellitus with diabetic polyneuropathy; E11.628 Type 2 diabetes mellitus with other skin complications; E11.51 Type 2 diabetes mellitus with diabetic peripheral angiopathy without gangrene; L03.115 Cellulitis of right lower limb; B95.62 Methicillin resistant Staphylococcus aureus infection as the cause of diseases classified elsewhere; Z79.4 Long term (current) use of insulin; I87.2 Venous insufficiency (chronic) (peripheral); I48.20 Chronic atrial fibrillation, unspecified; Z79.01 Long term (current) use of anticoagulants; I25.10 Atherosclerotic heart disease of native coronary artery without angina pectoris; G47.33 Obstructive sleep apnea (adult) (pediatric); E66.9 Obesity, unspecified; Z89.029 Acquired absence of unspecified finger(s); Z89.422 Acquired absence of other left toe(s); Z68.37 Body mass index [BMI] 37.0-37.9, adult; N40.0 Benign prostatic hyperplasia without lower urinary tract symptoms; G40.909 Epilepsy, unspecified, not intractable, without status epilepticus; E78.5 Hyperlipidemia, unspecified; H91.90 Unspecified hearing loss, unspecified ear
CPT/HCPCS: 36415; 71045; 80048; 80053; 82553; 82803; 82962; 83605; 83735; 83880; 84100; 84484; 85025; 85027; 85610; 85730; 86140; 87040; 87070; 87186; 87502; 87634; 87635; 93005; 99285; A9270; J0692; J1642; J1644; J1940; J2543; J3370; J3475; J7120

== ENCOUNTER 2023-01-25 19:58 | Outpatient (CLI) | payer BC, SELFPAY | END 2023-01-25 19:59 | disposition home or self-care (01) | PROVIDERS: PCP Family Medicine; Visit Provider Family Medicine | DX: I21.4 Non-ST elevation (NSTEMI) myocardial infarction (principal) | CPT/HCPCS: A0425; A0434 ==